=== PATIENT | female | born 1970 | race Caucasian/White ===

== ENCOUNTER 2022-12-28 17:13 | Emergency (ER) | payer OTHER, SELFPAY ==
--- NOTE | 2022-12-28 17:33 | ED.BACK ---
HPI - Back Pain/Injury General Chief Complaint: Abdominal Pain Stated Complaint: Flank pain Time Seen by Provider: 12/28/22 19:25 Source: patient and family Mode of arrival: ambulatory History of Present Illness HPI Narrative: 52-year-old female who arrives with persistent right upper flank discomfort, has been evaluated at [facility] (I reviewed the workup that she had at that time 12/22), she states that she did start the pantoprazole which she is taking twice a day and was prescribed some Carafate but has not yet started that. She states that an ultrasound was negative for gallbladder disease though it did demonstrate a fatty liver. This pain has not been associated with any fever, chills, nausea, vomiting, patient does express some concern regarding possible Crohn's as her father had this disease. Related Data Allergies Allergy/AdvReac Type Severity Reaction Status Date / Time avocado AdvReac Nausea Verified 12/28/22 17:36 Review of Systems Review of Systems: Pertinent positives and negatives as stated in HPI PMFSH Past Medical History Source: nursing notes reviewed Physical Exam Vital Signs: Vital Signs: Last Vital Signs Temp 97.8 F 12/28/22 17:34 Pulse 69 12/28/22 17:34 Resp 18 12/28/22 17:34 BP 155/77 H 12/28/22 17:34 Pulse Ox 97 12/28/22 17:34 O2 Del Method Room Air 12/28/22 17:34 BMI result Body Mass Index 31.2 VITAL SIGNS: Reviewed. GENERAL: Well developed, well nourished, in no acute distress. HEAD: Normocephalic/atraumatic EYES: PERRLA, EOMI EARS: Ext canals without abnormality NOSE: Nares patent bilateral OROPHARYNX: no oral lesions noted, posterior pharynx clear NECK: Supple, no adenopathy LUNGS: Normal breath sounds. No adventitious sounds or accessory muscle use. SpO2<97> CARDIOVASCULAR: Regular rate and rhythm without noted murmurs ABDOMEN: Soft, non-tender, non-distended with bowel sounds. MUSCULOSKELETAL: No tenderness, deformities, or effusions noted on gross inspection. EXTREMITIES: No cyanosis, clubbing or edema. SKIN: Inspection of the skin reveals no rashes NEUROLOGIC: Alert and oriented x 4. Strength and sensation to light touch were grossly intact x 4. Course Course Course Narrative: This is a rapid medical exam. Deferred additional HPI, ROS, PE to primary provider. 52 yo female with history of fatty liver here with right sided flank pain, bloating of the abdomen intermittent for 3 weeks. Decreased oral intake, noted some blood in the stools. No urinary sympoms. Waiting for outpatient CT A/P. Will check labs, UA. VSS Medical Decision Making Medical Decision Making MDM Narrative: Is a 52-year-old female with history and clinical presentation of a very through oral workup at [facility] and by her primary care provider which did not demonstrate any leukocytosis, anemia, elevated inflammatory markers, I reviewed the ultrasound evaluation and all chemistries appeared within normal limits. There are plans for patient to get an outpatient CT scan and at this time I do not feel that there is need to proceed with a CT scan today, patient is hemodynamically stable and appears otherwise comfortable, she will receive a GI cocktail as well as Carafate. We did discuss the benefits of Carafate and the importance of starting that treatment. No also recommended that she may want to pursue an upper endoscopy for evaluation of the stomach lining. She is otherwise discharged home in stable condition with interpretation of gastritis and possible gastric erosions. Differential Diagnosis Please see the discussion above Lab Data Please see the discussion above 12/28/22 17:52 12/28/22 17:52 Labs: Lab Results 12/28/22 12/28/22 Range/Units 17:52 17:52 WBC 9.2 (4.8-10.8) X10*3/uL RBC 4.38 (4.20-5.50) X10*6/uL Hgb 13.5 (12.0-16.0) g/dl Hct 40.5 (37.0-47.0) % MCV 92.5 (80.0-98.0) fL MCH 30.8 (27.0-33.0) pg MCHC 33.3 (31.0-35.0) g/dl RDW 11.9 (11.0-16.0) % Plt Count 332 (160-400) X10*3/uL MPV 10.6 (9.4-12.3) fL Immature Gran % (Auto) 0.4 (0.0-0.4) % Neut % (Auto) 56.9 (45-73) % Lymph % (Auto) 29.9 (20-40) % [place] % (Auto) 8.6 (2-11) % Eos % (Auto) 3.4 (0-4) % Baso % (Auto) 0.8 (0-2) % Lymph # (Auto) 2.8 (1.2-4.9) X10*3/uL [place] # (Auto) 0.8 (0.1-1.2) X10*3/uL Eos # (Auto) 0.3 (0.0-0.4) X10*3/uL Baso # (Auto) 0.1 (0.0-0.2) X10*3/uL Abs Immat Gran (auto) 0.04 H (0.00-0.03) X10*3/uL Absolute Neuts (auto) 5.2 (2.0-8.3) x10*3/uL Absolute Nucleated RBC 0.000 (0.0-0.012) X10*3/uL Nucleated RBC % (auto) 0.0 (0.0-0.2) /100WBC Sodium 143 (135-145) mmol/L Potassium 3.8 (3.3-5.1) mmol/L Chloride 107 (96-108) mmol/L Carbon Dioxide 24 (22-29) mmol/L Anion Gap 16 (12-20) BUN 13 (9-16) mg/dL Creatinine 0.87 (0.5-1.4) mg/dL Estim Creat Clear Calc 87.2 Estimated GFR > 60 Random Glucose 100 (60-115) mg/dL Calcium 9.6 (8.4-10.2) mg/dL Total Bilirubin 0.4 (0.0-1.0) mg/dL Direct Bilirubin 0.1 (0.0-0.5) mg/dL AST 23 (5-31) U/L ALT 30 (0-31) U/L Alkaline Phosphatase 89 (39-117) U/L Total Protein 7.2 (6.5-8.0) g/dL Albumin 4.5 (3.5-5.0) g/dL Lipase 24 (8-78) U/L External Record Review External record reviewed: Outpatient record and Outside ED record Discharge Plan Discharge Clinical Impression: Gastritis, Gastric erosion Patient Disposition: Home, Self-Care Instructions: Diet for Stomach Ulcers and Gastritis (ED), Gastritis (ED) Additional Instructions: 1. Resume all home medications as prescribed. 2. I certainly recommend that you initiate Carafate 3. It may be worthwhile for you to have an H pylori test and pursue an upper endoscopy. Return to the ER for any worsening symptoms. Referrals: Stephon Simon MD [Primary Care Provider] -
[2022-12-28 17:34] VITALS: BP 155/77; PULSE 69; RESP 18; TEMP 36.6; O2SAT 97; BMI 31.2
[2022-12-28 17:58] LABS: MANUAL DIFF FLAG NO
[2022-12-28 18:24] LABS: Basophils Absolute Auto 0.1 X10*3/uL (0.0-0.2); Basophils Percent Auto 0.8 % (0-2); Eosinophils Absolute Auto 0.3 X10*3/uL (0.0-0.4); Eosinophils Percent Auto 3.4 % (0-4); Hematocrit 40.5 % (37.0-47.0); Hemoglobin 13.5 g/dl (12.0-16.0); Imm Gran Abs Auto 0.04 X10*3/uL (0.00-0.03); Imm Gran Pct Auto 0.4 % (0.0-0.4); Lymphocytes Absolute Auto 2.8 X10*3/uL (1.2-4.9); Lymphocytes Percent Auto 29.9 % (20-40); Mean Corpuscular HGB Conc 33.3 g/dl (31.0-35.0); Mean Corpuscular Hemoglobin 30.8 pg (27.0-33.0); Mean Corpuscular Volume 92.5 fL (80.0-98.0); Mean Platelet Volume 10.6 fL (9.4-12.3); Monocytes Absolute Auto 0.8 X10*3/uL (0.1-1.2); Monocytes Percent Auto 8.6 % (2-11); Neutrophils Absolute Auto 5.2 x10*3/uL (2.0-8.3); Neutrophils Percent Auto 56.9 % (45-73); Platelet Count 332 X10*3/uL (160-400); Red Blood Count 4.38 X10*6/uL (4.20-5.50); Red Cell Distribution Width 11.9 % (11.0-16.0); White Blood Count 9.2 X10*3/uL (4.8-10.8)
[2022-12-28 18:25] LABS: Alanine Aminotransferase 30 U/L (0-31); Albumin Level 4.5 g/dL (3.5-5.0); Alkaline Phosphatase 89 U/L (39-117); Anion Gap 16 (12-20); Aspartate Amino Transferase 23 U/L (5-31); Bilirubin Direct 0.1 mg/dL (0.0-0.5); Bilirubin Total 0.4 mg/dL (0.0-1.0); Blood Urea Nitrogen 13 mg/dL (9-16); Calcium 9.6 mg/dL (8.4-10.2); Carbon Dioxide 24 mmol/L (22-29); Chloride 107 mmol/L (96-108); Creatinine Clr Calc Pharmacy 87.2; Estimated Glomerular Filt Rate > 60; Glucose Random 100 mg/dL (60-115); Lipase 24 U/L (8-78); Potassium 3.8 mmol/L (3.3-5.1); Sodium 143 mmol/L (135-145); Total Protein 7.2 g/dL (6.5-8.0)
--- NOTE | 2022-12-28 19:48 | PC.NURSE ---
assumed care of pt recvd report from JASPREET Gillis aox4 at bedside no apparent distress
[2022-12-28] MEDS: Lidocaine HCl Viscous 2 % 15 ML SOLUTION 10 ML MUCOUS MEM (20:43)
[2022-12-28] MEDS: Sucralfate Oral Suspension 1 GM/10 ML ORAL.SUSP PO (20:43)
[2022-12-28] MEDS: Magnesium Hydrox/Alum Hydrox 30 ML ORAL.SUSP PO (20:43)
[2022-12-28 20:48] VITALS: BP 142/83; PULSE 56; RESP 16; O2SAT 96
== END 2022-12-28 20:51 | disposition home or self-care (01) ==
PROVIDERS: Nurse Practitioner Family; Emergency Provider Student in an Organized Health Care Education/Training Program; PCP Internal Medicine
DX: K25.9 Gastric ulcer, unspecified as acute or chronic, without hemorrhage or perforation (principal); Z79.899 Other long term (current) drug therapy
CPT/HCPCS: 36415; 80048; 80076; 83690; 85025; 99283; 99284

== ENCOUNTER 2023-02-27 09:02 | Outpatient (REF) | payer OTHER, SELFPAY ==
[2023-02-27 12:00] LABS: C Reactive Protein 0.48 mg/dL (< or = 0.50)
[2023-02-27 12:13] LABS: Ferritin 163 ng/mL (10-250)
[2023-02-27 12:14] LABS: HBS Num1 120.16 mIU/mL (0-7.99); HBc Num1 0.07 S/CO (0.00-0.79); HBsAGNum1 0.31 S/CO (0.00-0.99); HIV AB/AG Nonreactive (Nonreactive); HIV Num 1 0.06 S/CO (0.00-0.99); Hepatitis A Antibody IgM 0.23 Index (0-0.79); Hepatitis B Core Antibody Nonreactive (Nonreactive); Hepatitis B Surface Antigen Negative (Negative); ~HepC Num1 0.06 S/CO (0.00-0.79); ~Hepatitis A Antibody IgM Nonreactive (Nonreactive); ~Hepatitis B Surface Antibody REACTIVE (Nonreactive); ~Hepatitis C Antibody Nonreactive (Nonreactive)
[2023-02-27 12:26] LABS: Gamma Glutamyl Transpeptidase 41 U/L (7-33)
[2023-02-28 11:23] LABS: Alpha Fetoprotein 1.3 ng/mL
[2023-02-28 17:03] LABS: Ceruloplasmin 28 mg/dL (18-53)
[2023-02-28 18:53] LABS: Transglutaminase Ab IgG <1.0 U/mL; Transglutaminase IgA <1.0 U/mL
[2023-03-01 10:58] LABS: Mitochondrial Antibodies NEGATIVE (NEGATIVE)
[2023-03-04 14:23] LABS: Anti Nuclear Antibody Screen NEGATIVE (NEGATIVE)
[2023-03-05 11:16] LABS: Anti Nuclear Antibody Pattern TNPT
[2023-03-05 22:48] LABS: Smooth Muscle Antibody <20 U (<20)
== END 2023-02-27 09:03 | disposition home or self-care (01) ==
LOC: HO.LAB 09:02
PROVIDERS: PCP Internal Medicine; Visit Provider Nurse Practitioner
DX: R74.01 Elevation of levels of liver transaminase levels (principal); R10.9 Unspecified abdominal pain; R19.7 Diarrhea, unspecified; K62.5 Hemorrhage of anus and rectum
CPT/HCPCS: 36415; 81479; 82105; 82390; 82397; 82728; 82977; 83520; 86003; 86015; 86038; 86140; 86255; 86256; 86364; 86704; 86706; 86709; 86803; 87340; 87389; 88346; 88350

== ENCOUNTER 2023-02-27 09:02 | Outpatient (AMB) | payer OTHER, SELFPAY ==
--- NOTE | 2023-02-27 09:03 | MHC.OFFVIS ---
Intake Vital Signs 02/27/23 09:06 Height 5 ft 7 in Weight 199 lb 4.766 oz BMI 31.2 BP 120/55 L Blood Pressure Location Rt brachial Position Sitting Pulse 70 Intake Visit Reasons: abdominal discomfort Intake Note: Patient presents to in office visit today as a new patient CC: Patient states she started to have abdominal pain, bloating, and abdominal discomfort back in November. She was seen in the [place] [facility]. She states she is now starting to feel better. She was told she has a hiatal hernia and fatty liver. She is now feeling like my stomach is heavy , and having occasional bloody diarrhea. [place] Superintendent Required: No Accompanied by: Self / Same As Patient Allergies No Known Drug Allergies Allergy (Unknown, Verified 02/27/23 09:09) none avocado Adverse Reaction (Verified 02/27/23 09:09) Nausea HPI abdominal discomfort HPI Details 52-year-old female here for initial evaluation of ?abdominal discomfort. ? It appears that they also expect the patient to have an upper and lower endoscopy. She is referred [facility]. PMX Obesity Fracture 4th toe GERD SMOKER * SURGICAL HISTORY Tonsillectomy * ALLERGIES: NKDA * LABS SINCE STUDY SUPPLIED BY PCP: 01/20/2023 unremarkable CBC with normal platelets, unremarkable renal panel, normal lipase level, AST/ALT with normal bilirubin and normal alk-phos, unremarkable renal panel,. Normal CRP, normal TSH, trace of hemoglobin in the urine CT ABDOMEN AND PELVIS 01/08/2023 [facility] IMPRESSION . Colonic diverticulosis without evidence for diverticulitis Small fat containing umbilical hernia Diffuse hepatic steatosis, nondistended gallbladder no stones no evidence of inflammation no biliary duct dilation.. TODAYS VISIT ADDITIONAL INFORMATION comes to light that the patient was seen in both our ER in the [facility] ER for pain and bloody diarrhea. Apparently her father has a history of Crohn's disease and also from [place] but contracted Hep B from a liver transplant. She started with LLQ pain last February and presented to the ER ([facility]) and waited too long and left. She was told her blood levels were off but in the end they were normal. In November she developed pain in the right flank and she was told it was heartburn and she was put on protonix and sucralfate. She had a lot of bloating and her lower abdomen feels heavy. She has lingering LLQ discomfort. She has a long prior history of intermittent diarrhea, but lately when she has diarrhea it will bleed. At first it is water mixed with solids and then just water with blood. She will have softer BM's mushy daily. She had chills but no measured fevers, no new meds no sick contacts, no undercooked foods, no urinary sx. She lost about 15 lbs since November - but she has cut out a lot of foods, fatty/fried, spicy etc. Drinking a lot of water instead of diet coke. Her thyroid in January was normal. The PPI and sucralfate seemed to help her. She has never had a colonoscopy. We will get a colonoscopy in EGD ordered and decide going forward if we need to keep the EGD. I will also get some labs based on her family history of Crohn's, although the lack of any sustained inflammation on CT scans seems to point away from this as a diagnosis. Will try treating the rectal bleeding with the hemorrhoid cream in the meantime since this is very worrisome to her. She would like us to do workup on her liver since her father seem to dive WELDON. Obviously I do not have problem doing this. It is slightly unusual for someone to develop cirrhosis from WELDON in the absence of drinking alcohol (he did not drink) so course we want to exclude autoimmune liver disease. The she has no prior trouble with anesthesia or sedation. She denies any asthma or cardiac problems. She has no known infectious diseases. There is no known family history of colon cancer or polyps. . Return office visit in 2 WEEKS. [facility] Surgical History (Updated 02/22/23 @ 16:07 by MARTINE Baker) Hx of tonsillectomy Family History (Updated 02/27/23 @ 09:12 by CORRIE Marte) Father WELDON (nonalcoholic steatohepatitis) Liver transplanted Crohn disease Social History (Updated 02/27/23 @ 09:11 by CORRIE Marte) Alcohol intake: current Alcohol intake frequency: holidays/special occasions only Patient Tobacco Use Status: Current someday Tobacco user Use of substances other than those prescribed or required for medical reasons: No Review of Systems Const Denies fatigue, Denies fever(s), Denies night sweats, Denies poor appetite and Reports weight loss ENT Reports Normal hearing present, Denies dental pain, Denies dysphagia, Denies hearing loss, Denies mouth pain, Denies odynophagia, Denies throat swelling, Denies tongue swelling and Reports other (Dentition adequate) Card Reports no additional complaints Resp Reports no additional complaints GI Reports abdominal pain, Denies melena, Reports bloating, Reports hematochezia, Denies constipation, Denies GI cramping, Denies dysphagia, Denies excessive flatus, Denies early satiety, Reports heartburn, Reports diarrhea, Denies nausea, Denies odynophagia, Denies vomiting and Denies hematemesis Musc Reports back pain Skin/Breast Denies pruritus, Denies lesions, Denies rash and Denies jaundice Neuro Reports Normal hearing present and Denies Abnormal speech present Endo Denies fatigue Aller/Immun Denies throat swelling and Denies tongue swelling Physical Exam Vital Signs: Last Vital Signs Pulse 70 02/27/23 09:06 BP 120/55 L 02/27/23 09:06 BMI result Body Mass Index 31.2 Const General: cooperative, no acute distress, well developed and well groomed Nutritional Appearance: well nourished and overweight Orientation/consciousness: oriented to person, oriented to place and oriented to time Limitations: No language barrier HEENT Head: Yes normocephalic and Yes atraumatic Eyes General: appearance normal, both eyes and all related structures Pupils: Equal, round and reactive pupils present Neck Neck: Yes normal visual inspection and Yes no lymphadenopathy Thyroid: Thyroid normal Resp Effort & Inspection: normal respiratory effort and able to speak in complete sentences Auscultation: clear to auscultation bilaterally Cardio Rate: regular rate Rhythm: regular rhythm Heart sounds: Normal, physiologic split S2 sound present Peripheral pulses: radial pulses present and posterior tibial pulses present GI Inspection: No distended, No Abdominal panniculus present, Yes obesity, No scar and Yes striae Palpation (GI): Soft to palpation, nontender, no guarding, not rigid and No hepatosplenomegaly present Percussion: Yes normal to percussion Auscultation: normal bowel sounds Rectal Exam - Female: deferred Skin General skin exam: no rashes or lesions noted, turgor normal, skin not dry, no jaundice, No spider nevi and no striae Rashes: no rashes Nails: normal Neuro General: oriented to person, oriented to place and oriented to time Cranial nerves: Yes Equal, round and reactive pupils present and Yes Normal hearing present Speech: No Abnormal speech present Extrem General: Yes normal to inspection, No clubbing, No cyanosis and No edema Psych Appearance: grossly normal and well kempt Mental Status: mental status grossly normal Speech and movement: Normal speech and movement present Affect: normal affect Attitude: cooperative Thought process: Normal thought process present and not confabulating Thought content: Normal thought content present Insight: Good insight present (Psych) Judgement: Good judgement present (Psych) Assessment & Plan Assessment & Plan (1) Diarrhea: Code(s): R19.7 - Diarrhea, unspecified Plan: ADDITIONAL INFORMATION comes to light that the patient was seen in both our ER in the [facility] ER for pain and bloody diarrhea. Apparently her father has a history of Crohn's disease and also from [place] but contracted Hep B from a liver transplant. She started with LLQ pain last February and presented to the ER ([facility]) and waited too long and left. She was told her blood levels were off but in the end they were normal. In November she developed pain in the right flank and she was told it was heartburn and she was put on protonix and sucralfate. She had a lot of bloating and her lower abdomen feels heavy. She has lingering LLQ discomfort. She has a hx of intermittent diarrhea, but lately when she has diarrhea it will bleed. At first it is water mixed with solids and then just water with blood. She will have softer BM's mushy daily. She had chills but no measured fevers, no new meds no sick contacts, no undercooked foods, no urinary sx. She lost about 15 lbs since November - but she has cut out a lot of foods, fatty/fried, spicy etc. Drinking a lot of water instead of diet coke. Her thyroid in January was normal. The PPI and sucralfate seemed to help her. She has never had a colonoscopy. We will get a colonoscopy in EGD ordered and decide going forward if we need to keep the EGD. I will also get some labs based on her family history of Crohn's, although the lack of any sustained inflammation on CT scans seems to point away from this as a diagnosis. Will try treating the rectal bleeding with the hemorrhoid cream in the meantime since this is very worrisome to her. She would like us to do workup on her liver since her father seem to dive WELDON. Obviously I do not have problem doing this. It is slightly unusual for someone to develop cirrhosis from WELDON in the absence of drinking alcohol (he did not drink) so course we want to exclude autoimmune liver disease. The she has no prior trouble with anesthesia or sedation. She denies any asthma or cardiac problems. She has no known infectious diseases. There is no known family history of colon cancer or polyps. Return office visit in 2 WEEKS. (2) Rectal bleeding: Code(s): K62.5 - Hemorrhage of anus and rectum (3) Transaminitis: Code(s): R74.01 - Elevation of levels of liver transaminase levels (4) Abdominal pain: Code(s): R10.9 - Unspecified abdominal pain Orders: Orders Calprotectin, Fecal Today R74.01 - Elevation of levels of liver transaminase levels C Reactive Protein Today R74.01 - Elevation of levels of liver transaminase levels Prometheus IBD SGI Today R74.01 - Elevation of levels of liver transaminase levels Rast Allergen Today R74.01 - Elevation of levels of liver transaminase levels Transglutaminase IgA Today R74.01 - Elevation of levels of liver transaminase levels Transglutaminase Ab IgG Today R74.01 - Elevation of levels of liver transaminase levels GI Panel Today R74.01 - Elevation of levels of liver transaminase levels Alpha Fetoprotein Today R74.01 - Elevation of levels of liver transaminase levels Ceruloplasmin Today R74.01 - Elevation of levels of liver transaminase levels Ferritin Today R74.01 - Elevation of levels of liver transaminase levels Gamma Glutamyl Transpeptidase Today R74.01 - Elevation of levels of liver transaminase levels GUILHERME Reflex Titer and Pattern Today R74.01 - Elevation of levels of liver transaminase levels Mitochondrial Antibody Today R74.01 - Elevation of levels of liver transaminase levels Smooth Muscle Antibody Today R74.01 - Elevation of levels of liver transaminase levels Hepatitis A,B,C Profile Today R74.01 - Elevation of levels of liver transaminase levels HIV Ab/Ag Today R74.01 - Elevation of levels of liver transaminase levels EGD/Oakley Combo - GI Use Only Today R10.9 - Unspecified abdominal pain Medications: New peg 3350-electrolytes 236-22.74-6.74 -5.86 gram (Golytely) until fecal effluent is clear; do not exceed a total volume of 2,000 mL 240 mL PO Q10M 1 day 4,000 mL 0RF Z12.11 - Encounter for screening for malignant neoplasm of colon hydrocortisone 2.5% (Proctosol HC) BE SURE TO INCLUDE RECTAL APPICATOR!! 1 appl IA BID 30 grams 6RF hemorrhoids K64.9 - Unspecified hemorrhoids Coding Level of Care Code New Pt Level 3 (08481) Diagnoses Diarrhea R19.7 Rectal bleeding K62.5 Transaminitis R74.01 Abdominal pain R10.9
[2023-02-27 09:06] VITALS: BP 120/55; PULSE 70; BMI 31.2
== END 2023-02-27 09:59 | disposition home or self-care (01) ==
PROVIDERS: PCP Internal Medicine; Visit Provider Nurse Practitioner
DX: R19.7 Diarrhea, unspecified (principal); K62.5 Hemorrhage of anus and rectum; R74.01 Elevation of levels of liver transaminase levels; R10.9 Unspecified abdominal pain
CPT/HCPCS: 99203

== ENCOUNTER 2023-03-07 17:59 | Outpatient (REF) | payer OTHER, SELFPAY ==
[2023-03-08 11:55] LABS: Campylobacter Not Detected (Not Detect.); E. coli EAEC Not Detected (Not Detect.); Plesiomonas shigelloides Not Detected (Not Detect.); Salmonella Not Detected (Not Detect.); Vibrio Not Detected (Not Detect.); Vibrio Cholerae Not Detected (Not Detect.); Yersinia enterocolitica Not Detected (Not Detect.)
[2023-03-08 11:56] LABS: Adenovirus F 40/41 Not Detected (Not Detect.); Astrovirus Not Detected (Not Detect.); Cryptosporidium Not Detected (Not Detect.); Cyclospora cayetanensis Not Detected (Not Detect.); E. coli EPEC Detected (Not Detect.); E. coli ETEC Not Detected (Not Detect.); E. coli STEC Not Detected (Not Detect.); Entamoeba histolytica Not Detected (Not Detect.); Giardia lamblia Not Detected (Not Detect.); Norovirus GI/GII Not Detected (Not Detect.); Rotavirus A Not Detected (Not Detect.); Sapovirus Not Detected (Not Detect.); Shigella sp./EIEC Not Detected (Not Detect.)
[2023-03-14 23:47] LABS: Calprotectin, Fecal 77 mcg/g
== END 2023-03-07 18:00 | disposition home or self-care (01) ==
LOC: HO.LNP 17:59
PROVIDERS: Visit Provider Nurse Practitioner
DX: R74.01 Elevation of levels of liver transaminase levels (principal)
CPT/HCPCS: 83993; 87507

== ENCOUNTER 2023-03-12 13:20 | Outpatient (AMB) | payer OTHER, SELFPAY ==
[2023-03-12 13:22] VITALS: BP 119/59; PULSE 80; BMI 31.5
--- NOTE | 2023-03-12 13:22 | A.OFFVIS_ITS ---
Intake Vital Signs 03/12/23 13:22 Height 5 ft 7 in Weight 201 lb 0.985 oz BMI 31.5 BP 119/59 L Blood Pressure Location Rt brachial Position Sitting Pulse 80 Intake Visit Reasons: 2 week follow up Intake Note: Patient presents to in office visit today in follow up of labs. CC: Patient states she continues to have abdominal pain, bloating, and abdominal discomfort. Product Coordinator Required: No Accompanied by: Self / Same As Patient Allergies No Known Drug Allergies Allergy (Unknown, Verified 04/09/23 14:33) none avocado Adverse Reaction (Verified 04/09/23 14:33) Nausea HPI 2 week follow up HPI Details Assessment & Plan (1) Diarrhea: ?Code(s): R19.7 - Diarrhea, unspecified ?Plan: ADDITIONAL INFORMATION comes to light that the patient was seen in both our ER in the [facility] for pain and bloody diarrhea.? Apparently her father has a history of Crohn's disease and also from WELDON but contracted Hep B from a liver transplant. She started with LLQ pain last February and [place] and waited too long and left. She was told her blood levels were off but in the end they were normal. In November she developed pain in the right flank and she was told it was heartburn and she was put on protonix and sucralfate. She had a lot of bloating and her lower abdomen feels heavy. She has lingering LLQ discomfort. She has? a hx of intermittent diarrhea, but lately when she has diarrhea it will bleed. At first it is water mixed with solids and then just water with blood. She will have softer BM's mushy daily. She had chills but no measured fevers, no new meds no sick contacts, no undercooked foods, no urinary sx. She lost about 15 lbs since November - but she has cut out a lot of foods, fatty/fried, spicy etc. Drinking a lot of water instead of diet coke.? Her thyroid in January was normal. The PPI and sucralfate seemed to help her. She has never had a colonoscopy.? We will get a colonoscopy in EGD ordered and decide going forward if we need to keep the EGD. I will also get some labs based on her family history of Crohn's, although the lack of any sustained inflammation on CT scans seems to point away from this as a diagnosis.? Will try treating the rectal bleeding with the hemorrhoid cream in the meantime since this is very worrisome to her. She would like us to do workup on her liver since her father seem to dive WELDON.? Obviously I do not have problem doing this.? It is slightly unusual for someone to develop cirrhosis from WELDON in the absence of drinking alcohol (he did not drink) so course we want to exclude autoimmune liver disease. The she has no prior trouble with anesthesia or sedation.? She denies any asthma or cardiac problems.? She has no known infectious diseases. There is no known family history of colon cancer or polyps. Return office visit in 2 WEEKS. (2) Rectal bleeding: ?Code(s): K62.5 - Hemorrhage of anus and rectum (3) Transaminitis: ?Code(s): R74.01 - Elevation of levels of liver transaminase levels (4) Abdominal pain: ?Code(s): R10.9 - Unspecified abdominal pain ? ? ? Orders: Orders Calprotectin, Feca l Today R74.01 - Elevation of levels of live r transaminase lev els ? C Reactive Protein Today R74.01 - Elevation of levels of live r transaminase lev els ? Prometheus IBD SGI Today R74.01 - Elevation of levels of live r transaminase lev els ? Rast Allergen Today R74.01 - Elevation of levels of live r transaminase lev els ? Transglutaminase I gA Today R74.01 - Elevation of levels of live r transaminase lev els ? Transglutaminase A b IgG Today R74.01 - Elevation of levels of live r transaminase lev els ? GI Panel Today R74.01 - Elevation of levels of live r transaminase lev els ? Alpha FetoproteinA Today R74.01 - Elevation of levels of live r transaminase lev els ? Ceruloplasmin Today R74.01 - Elevation of levels of live r transaminase lev els ? Ferritin Today R74.01 - Elevation of levels of live r transaminase lev els ? Gamma Glutamyl Tra nspeptidase Today R74.01 - Elevation of levels of live r transaminase lev els ? GUILHERME Reflex Titer a nd Pattern Today R74.01 - Elevation of levels of live r transaminase lev els ? Mitochondrial Anti body Today R74.01 - Elevation of levels of live r transaminase lev els ? Smooth Muscle Anti body Today R74.01 - Elevation of levels of live r transaminase lev els ? Hepatitis A,B,C Pr ofile Today R74.01 - Elevation of levels of live r transaminase lev els ? HIV Ab/Ag Today R74.01 - Elevation of levels of live r transaminase lev els ? EGD/[place] Combo - G I Use Only Today R10.9 - Unspecifie d abdominal pain ? Medications: New peg 3350-electroly jc 236-22.74-6.74 -5.86 gram (Golyt garth) ?? until feca l effluent is natanael r; do not exceed a total volume of 2 ,000 mL 240 mL? PO Q10M 1 day 4,000 mL 0RF Z12.11 - Encounter for screening for malignant neoplas m of colon ? hydrocortisone 2.5 % (Proctosol HC) ? ? BE SURE TO INCLU DE RECTAL APPICATO R!! 1 appl? PA BID 30 grams 6RF hemorrho ids K64.9 - Unspecifie d hemorrhoids LABS Laboratory Tests 02/27/23 02/27/23 10:36 10:36 C-Reactive Protein 0.48 Ceruloplasmin 28 Alpha Fetoprotein 1.3 Laboratory Tests 02/27/23 02/27/23 02/27/23 10:36 10:36 10:36 Ferritin 163 Alpha Fetoprotein 1.3 GUILHERME Screen NEGATIVE Anti-Mitochondrial Ab Anti-Smooth Muscle Ab Tiss Transglutamin IgG Tiss Transglutamin IgA Hepatitis A IgM Ab Hep Bs Antigen Hep Bs Antibody Hep B Core Total A b Hepatitis C Ab (EI A) HIV 1&2 Ab/P24 Ag 4thGn 02/27/23 02/27/23 10:36 10:36 Ferritin Alpha Fetoprotein GUILHERME Screen Anti-Mitochondrial Ab NEGATIVE Anti-Smooth Muscle Ab <20 Tiss Transglutamin IgG <1.0 Tiss Transglutamin IgA <1.0 Hepatitis A IgM Ab Nonreactive Hep Bs Antigen Negative Hep Bs Antibody REACTIVE Hep B Core Total A b Nonreactive Hepatitis C Ab (EI A) Nonreactive HIV 1&2 Ab/P24 Ag 4thGn Nonreactive 03/07/23-1800 OTHR : ORDERED: GI Panel Test Result Flag Referen ce Sit e Campylobacter Not Detected Not Dete ct. P. shigelloides Not D etected Not Detect . Sa lmonella Not Det ected Not Detect. Vibr io Not Detec ame Not Detect. Vibrio Cholerae Not Detecte d Not Detect. Y. enter ocolit. Not Detected Not Detect. E. coli EA EC Not Detected No t Detect. E. coli EPEC Detected A Not Detect. E. coli ETEC N ot Detected Not De tect. E. coli STEC Not Detected Not Dete ct. E. coli O157 Not ap plicable Not Detect . E. coli contain ing the O157 antig en are a subset of Shiga-like toxin-producing E . coli (STEC). S higella/EIEC Not De tected Not Detect. Cry ptosporidium Not Dete cted Not Detect. Cyclo spora Not Detect ed Not Detect. E. hist olytica Not Detected Not Detect. Giardia l amblia Not Detected N ot Detect. Adenovirus Not Detected Not Detect. Astrovirus Not Detected Not D etect. Norovirus No t Detected Not Det ect. Rotavirus A Not Detected Not Detec t. S apovirus Not De tected Not Detect. PROMETHEUS INCONCLUSIVE FOR IBS. RAST PANEL shows NO significant food allergies. EGD/COLONOSCOPY BIOPSY TODAYS VISIT Her diarrhea continues, she is taking the sucralfate and this usually helped a bit with the heaviness but not the diarrhea. Her stomach hurts when she bends down. WE review the labs, still waiting for the fecal calprotectin. The Prometheus study is inconclusive for IBD and the RAST panel does not show any significant food allergies. She has not yet heard to have EGD/colonoscopy scheduled. Will try zithromax 1 g for the + EPAP E coli, but I am uncertain how much this is a contributing factor to her overall symptoms. ROV 4 weeks. PFSH Surgical History Hx of tonsillectomy Family History Father WELDON (nonalcoholic steatohepatitis) Liver transplanted Crohn disease Social History Alcohol intake: current Alcohol intake frequency: holidays/special occasions only Patient Tobacco Use Status: Current someday Tobacco user Review of Systems Const Denies fatigue, Denies fever(s), Denies night sweats, Denies poor appetite and Denies weight loss ENT Reports Normal hearing present, Denies dental pain, Denies dysphagia, Denies hearing loss, Denies mouth pain, Denies odynophagia, Denies throat swelling, Denies tongue swelling and Reports other (Dentition adequate) Card Reports no additional complaints Resp Reports no additional complaints GI Reports abdominal pain, Denies melena, Denies bloating, Denies hematochezia, Denies constipation, Denies GI cramping, Denies dysphagia, Denies excessive flatus, Denies early satiety, Reports heartburn, Reports diarrhea, Denies nausea, Denies odynophagia, Denies vomiting and Denies hematemesis Skin/Breast Denies pruritus, Denies lesions, Denies rash and Denies jaundice Neuro Reports Normal hearing present and Denies Abnormal speech present Endo Denies fatigue Aller/Immun Denies throat swelling and Denies tongue swelling Physical Exam Vital Signs: Last Vital Signs Pulse 80 03/12/23 13:22 BP 119/59 L 03/12/23 13:22 BMI result Body Mass Index 31.5 Const General: cooperative, no acute distress, well developed and well groomed Nutritional Appearance: well nourished and obese Orientation/consciousness: oriented to person, oriented to place and oriented to time Limitations: No language barrier HEENT Head: Yes normocephalic and Yes atraumatic Eyes General: appearance normal, both eyes and all related structures Pupils: Equal, round and reactive pupils present Neck Neck: Yes normal visual inspection and Yes no lymphadenopathy Thyroid: Thyroid normal Resp Effort & Inspection: normal respiratory effort and able to speak in complete sentences Auscultation: clear to auscultation bilaterally Cardio Rate: regular rate Rhythm: regular rhythm Heart sounds: Normal, physiologic split S2 sound present Peripheral pulses: radial pulses present and posterior tibial pulses present GI Inspection: No distended, No Abdominal panniculus present and Yes obesity Palpation (GI): Soft to palpation, Tenderness to palpation present (GI) in the RUQ, no guarding, not rigid and No hepatosplenomegaly present Percussion: Yes normal to percussion Auscultation: normal bowel sounds Rectal Exam - Female: deferred Skin General skin exam: no rashes or lesions noted, turgor normal, skin not dry, no jaundice, No spider nevi and no striae Rashes: no rashes Nails: normal Neuro General: oriented to person, oriented to place and oriented to time Cranial nerves: Yes Equal, round and reactive pupils present and Yes Normal hearing present Speech: No Abnormal speech present Extrem General: Yes normal to inspection, No clubbing, No cyanosis and No edema Psych Appearance: grossly normal and well kempt Mental Status: mental status grossly normal Speech and movement: Normal speech and movement present Affect: normal affect Attitude: cooperative Thought process: Normal thought process present and not confabulating Thought content: Normal thought content present Insight: Limited insight present (Psych) Judgement: Limited judgement present (Psych) Results Reviewed Results Reviewed: Laboratory Tests 02/27/23 02/27/23 10:36 10:36 C-Reactive Protein 0.48 Ceruloplasmin 28 Alpha Fetoprotein 1.3 Laboratory Tests 02/27/23 02/27/23 02/27/23 10:36 10:36 10:36 Ferritin 163 Alpha Fetoprotein 1.3 GUILHERME Screen NEGATIVE Anti-Mitochondrial Ab Anti-Smooth Muscle Ab Tiss Transglutamin IgG Tiss Transglutamin IgA Hepatitis A IgM Ab Hep Bs Antigen Hep Bs Antibody Hep B Core Total Ab Hepatitis C Ab (EIA) HIV 1&2 Ab/P24 Ag 4thGn 02/27/23 02/27/23 10:36 10:36 Ferritin Alpha Fetoprotein GUILHERME Screen Anti-Mitochondrial Ab NEGATIVE Anti-Smooth Muscle Ab <20 Tiss Transglutamin IgG <1.0 Tiss Transglutamin IgA <1.0 Hepatitis A IgM Ab Nonreactive Hep Bs Antigen Negative Hep Bs Antibody REACTIVE Hep B Core Total Ab Nonreactive Hepatitis C Ab (EIA) Nonreactive HIV 1&2 Ab/P24 Ag 4thGn Nonreactive 03/07/23-[address]: ORDERED: GI Panel Test Result Flag Reference Site Campylobacter Not Detected Not Detect. P. shigelloides Not Detected Not Detect. Salmonella Not Detected Not Detect. Vibrio Not Detected Not Detect. Vibrio Cholerae Not Detected Not Detect. Y. enterocolit. Not Detected Not Detect. E. coli EAEC Not Detected Not Detect. E. coli EPEC Detected A Not Detect. E. coli ETEC Not Detected Not Detect. E. coli STEC Not Detected Not Detect. E. coli O157 Not applicable Not Detect. E. coli containing the O157 antigen are a subset of Shiga-like toxin-producing E. coli (STEC). Shigella/EIEC Not Detected Not Detect. Cryptosporidium Not Detected Not Detect. Cyclospora Not Detected Not Detect. E. histolytica Not Detected Not Detect. Giardia lamblia Not Detected Not Detect. Adenovirus Not Detected Not Detect. Astrovirus Not Detected Not Detect. Norovirus Not Detected Not Detect. Rotavirus A Not Detected Not Detect. Sapovirus Not Detected Not Detect. PROMETHEUS INCONCLUSIVE FOR IBS. RAST PANEL shows NO significant food allergies. Assessment & Plan Assessment & Plan (1) Diarrhea: Code(s): R19.7 - Diarrhea, unspecified Plan: EGD/COLONOSCOPY BIOPSY TODAYS VISIT Her diarrhea continues, she is taking the sucralfate and this usually helped a bit with the heaviness but not the diarrhea. Her stomach hurts when she bends down. She continues on her pantoprazole 40 mg twice a day. WE review the labs, still waiting for the fecal calprotectin. The Prometheus study is inconclusive for IBD and the RAST panel does not show any significant food allergies. The liver workup does not show any severe contributing factors except for fatty liver. She is educated that slow steady weight loss and a voidance of alcohol I the 2 most important things to keep her liver healthy over the life time. She has not yet heard to have EGD/colonoscopy scheduled. Will try zithromax 1 g for the + EPAP E coli, but I am uncertain how much this is a contributing factor to her overall symptoms. ROV 4 weeks. (2) GERD (gastroesophageal reflux disease): Code(s): K21.9 - Gastro-esophageal reflux disease without esophagitis (3) Family history of inflammatory bowel disease: Code(s): Z83.79 - Family history of other diseases of the digestive system (4) E. coli infection: Code(s): A49.8 - Other bacterial infections of unspecified site (5) WELDON (nonalcoholic steatohepatitis): Comment: Baseline labs 02/27/23 the GGT 41 H Ceruloplasmin 28 Alpha Fetoprotein 1.3 the GUILHERME Screen NEGATIVE Anti-Mitochondrial Ab NEGATIVE Anti-Smooth Muscle Ab <20 Tiss Transglutamin IgG <1.0 Tiss Transglutamin IgA <1.0 Hepatitis A IgM Ab Nonreactive Hep Bs Antigen Negative Hep Bs Antibody REACTIVE Hep B Core Total Ab Nonreactive Hepatitis C Ab (EIA) Nonreactive HIV 1&2 Ab/P24 Ag 4thGn Nonreactive Ferritin 163 12/28/22 Total Bilirubin 0.4 Direct Bilirubin 0.1 AST 23 ALT 30 Alkaline Phosphatase 89. CURRENT LABS THE CT ABDOMEN PELVIS PERFORMED AT [facility] 01/08/2023 LIVER: Mild hepatic steatosis diffusely. Gallbladder: Nondistended gallbladder. No calcified stones. No evidence of inflammation. No biliary ductal dilation. The spleen: Normal Code(s): K75.81 - Nonalcoholic steatohepatitis (WELDON) Medications: New azithromycin (Zithromax) 1,000 mg (2 x 500 mg) PO ONCE 2 tabs 0RF Coding Level of Care Code Est Pt Level 4 (66664) Diagnoses Diarrhea R19.7 GERD (gastroesophageal reflux disease) K21.9 Family history of inflammatory bowel disease Z83.79 E. coli infection A49.8 WELDON (nonalcoholic steatohepatitis) K75.81
== END 2023-03-12 13:53 | disposition home or self-care (01) ==
PROVIDERS: PCP Internal Medicine; Visit Provider Nurse Practitioner
DX: R19.7 Diarrhea, unspecified (principal); K21.9 Gastro-esophageal reflux disease without esophagitis; Z83.79 Family history of other diseases of the digestive system; A49.8 Other bacterial infections of unspecified site; K75.81 Nonalcoholic steatohepatitis (NASH)
CPT/HCPCS: 99214

== ENCOUNTER → 2023-03-12 13:20 | Outpatient (BNVA) | payer OTHER, SELFPAY | PROVIDERS: PCP Internal Medicine; Visit Provider Nurse Practitioner ==

== ENCOUNTER 2023-04-09 14:25 | Outpatient (AMB) | payer OTHER, SELFPAY ==
[2023-04-09 14:31] VITALS: BP 133/60; PULSE 74; BMI 31.1
--- NOTE | 2023-04-09 14:31 | A.OFFVIS_ITS ---
Intake Vital Signs 04/09/23 14:31 Height 5 ft 7 in Weight 198 lb 13.711 oz BMI 31.1 BP 133/60 Blood Pressure Location Lt brachial Position Sitting Pulse 74 Intake Visit Reasons: 4 week follow up Intake Note: Patient returns to in office 4 weeks follow up of diarrhea. CC: Patient reports she completed course of abx and states she was doing better for 2 weeks but then she began to have diarrhea again. Denies other GI symptoms. 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 Apparently her father has a history of Crohn's disease and also from WELDON but contracted Hep B from a liver transplant. She started with LLQ pain last February and [place] [place] and waited too long and left. She was told her blood levels were off but in the end they were normal. In November she developed pain in the right flank and she was told it was heartburn and she was put on protonix and sucralfate. She had a lot of bloating and her lower abdomen feels heavy. She has lingering LLQ discomfort. She has? a hx of intermittent diarrhea, but lately when she has diarrhea it will bleed. At first it is water mixed with solids and then just water with blood. She will have softer BM's mushy daily. She had chills but no measured fevers, no new meds no sick contacts, no undercooked foods, no urinary sx. She lost about 15 lbs since November - but she has cut out a lot of foods, fatty/fried, spicy etc. Drinking a lot of water instead of diet coke.? Her thyroid in January was normal. The PPI and sucralfate seemed to help her. She has never had a colonoscopy.? We will get a colonoscopy in EGD ordered and decide going forward if we need to keep the EGD. I will also get some labs based on her family history of Crohn's, although the lack of any sustained inflammation on CT scans seems to point away from this as a diagnosis.? Will try treating the rectal bleeding with the hemorrhoid cream in the meantime since this is very worrisome to her. She would like us to do workup on her liver since her father seem to dive WELDON.? Obviously I do not have problem doing this.? It is slightly unusual for someone to develop cirrhosis from WELDON in the absence of drinking alcohol (he did not drink) so course we want to exclude autoimmune liver disease. The she has no prior trouble with anesthesia or sedation.? She denies any asthma or cardiac problems.? She has no known infectious diseases. There is no known family history of colon cancer or polyps. Return office visit in 2 WEEKS. (2) Rectal bleeding: ?Code(s): K62.5 - Hemorrhage of anus and rectum (3) Transaminitis: ?Code(s): R74.01 - Elevation of levels of liver transaminase levels (4) Abdominal pain: ?Code(s): R10.9 - Unspecified abdominal pain ? ? ? Orders: Orders Calprotectin, Feca l Today R74.01 - Elevation of levels of live r transaminase lev els ? C Reactive Protein Today R74.01 - Elevation of levels of live r transaminase lev els ? Prometheus IBD SGI Today R74.01 - Elevation of levels of live r transaminase lev els ? Rast Allergen Today R74.01 - Elevation of levels of live r transaminase lev els ? Transglutaminase I gA Today R74.01 - Elevation of levels of live r transaminase lev els ? Transglutaminase A b IgG Today R74.01 - Elevation of levels of live r transaminase lev els ? GI Panel Today R74.01 - Elevation of levels of live r transaminase lev els ? Alpha FetoproteinA Today R74.01 - Elevation of levels of live r transaminase lev els ? Ceruloplasmin Today R74.01 - Elevation of levels of live r transaminase lev els ? Ferritin Today R74.01 - Elevation of levels of live r transaminase lev els ? Gamma Glutamyl Tra nspeptidase Today R74.01 - Elevation of levels of live r transaminase lev els ? GUILHERME Reflex Titer a nd Pattern Today R74.01 - Elevation of levels of live r transaminase lev els ? Mitochondrial Anti body Today R74.01 - Elevation of levels of live r transaminase lev els ? Smooth Muscle Anti body Today R74.01 - Elevation of levels of live r transaminase lev els ? Hepatitis A,B,C Pr ofile Today R74.01 - Elevation of levels of live r transaminase lev els ? HIV Ab/Ag Today R74.01 - Elevation of levels of live r transaminase lev els ? EGD/[place] Combo - G I Use Only Today R10.9 - Unspecifie d abdominal pain ? Medications: New peg 3350-electroly jc 236-22.74-6.74 -5.86 gram (Golyt garth) ?? until feca l effluent is natanael r; do not exceed a total volume of 2 ,000 mL 240 mL? PO Q10M 1 day 4,000 mL 0RF Z12.11 - Encounter for screening for malignant neoplas m of colon ? hydrocortisone 2.5 % (Proctosol HC) ? ? BE SURE TO INCLU DE RECTAL APPICATO R!! 1 appl? NM BID 30 grams 6RF hemorrho ids K64.9 - Unspecifie d hemorrhoids LABS Laboratory Tests 02/27/23 02/27/23 03/07/23 10:36 10:36 07:50 GGT 41 H C-Reactive Protein 0.48 Ceruloplasmin 28 Alpha Fetoprotein 1.3 Stool Calprotectin 77 GUILHERME Screen NEGATIVE Anti-Mitochondrial Ab NEGATIVE Anti-Smooth Muscle Ab <20 Tiss Transglutamin IgG <1.0 Tiss Transglutamin IgA <1.0 Hepatitis A IgM Ab Nonreactive Hep Bs Antigen Negative Hep Bs Antibody REACTIVE Hep B Core Total A b Nonreactive Hepatitis C Ab (EI A) Nonreactive HIV 1&2 Ab/P24 Ag 4thGn Nonreactive Laboratory Tests 12/28/22 17:52 Total Bilirubin 0.4 Direct Bilirubin 0.1 AST 23 ALT 30 Alkaline Phosphata se 89 Prometheus IBD shows a genetic propensity toward IBD without being able to discern Crohn's versus ulcerative colitis however with a negative CRP and fecal calprotectin this does not seem the likely source of the problem currently. EGD/COLONOSCOPY scheduled for 05/24 BIOPSY TODAY'S VISIT She had initial improvement with the Zithromax but then her symptoms returned. We will re treat with a longer course for e coli. She IS having more solid stools which she was never able to have before even with the Carafate. She went back on the carafate when the heavy feeling returned and this helped, but she was off of it for a bit. We review the labs for her liver and WELDON is the dx. She was educated about slow steady weight loss and avoidance of any regular intake of alcohol to try to help keep her liver healthy over her lifetime. She is aware that she has a genetic tendency towards inflammatory bowel disease but given the negative CRP and fecal calprotectin that clearly is not what is happening now. That does not mean that this could not manifest later in her life and that something we could keep an open mind about if she develops additional diarrhea that is unexplained by other means. She seems to feel that the problem started after course of dental antibiotics and probiotics. ROV 3 weeks. PFSH Surgical History Hx of tonsillectomy Family History Father WELDON (nonalcoholic steatohepatitis) Liver transplanted Crohn disease Social History Alcohol intake: current Alcohol intake frequency: holidays/special occasions only Patient Tobacco Use Status: Current someday Tobacco user Review of Systems Const Denies fatigue, Denies fever(s), Denies night sweats, Denies poor appetite and Denies weight loss ENT Reports Normal hearing present, Denies dental pain, Denies dysphagia, Denies hearing loss, Denies mouth pain, Denies odynophagia, Denies throat swelling, Denies tongue swelling and Reports other (Dentition adequate) Card Reports no additional complaints Resp Reports no additional complaints GI Reports abdominal pain, Denies melena, Denies bloating, Denies hematochezia, Denies constipation, Denies GI cramping, Denies dysphagia, Denies excessive flatus, Denies early satiety, Reports heartburn, Reports diarrhea, Denies nausea, Denies odynophagia, Denies vomiting and Denies hematemesis Musc Reports back pain Skin/Breast Denies pruritus, Denies lesions, Denies rash and Denies jaundice Neuro Reports Normal hearing present and Denies Abnormal speech present Endo Denies fatigue Aller/Immun Denies throat swelling and Denies tongue swelling Physical Exam Vital Signs: Last Vital Signs Pulse 74 04/09/23 14:31 BP 133/60 04/09/23 14:31 BMI result Body Mass Index 31.1 Const General: cooperative, no acute distress, well developed and well groomed Nutritional Appearance: well nourished and obese Orientation/consciousness: oriented to person, oriented to place and oriented to time Limitations: No language barrier HEENT Head: Yes normocephalic and Yes atraumatic Eyes General: appearance normal, both eyes and all related structures Pupils: Equal, round and reactive pupils present Neck Neck: Yes normal visual inspection and Yes no lymphadenopathy Thyroid: Thyroid normal Resp Effort & Inspection: normal respiratory effort and able to speak in complete sentences Auscultation: clear to auscultation bilaterally Cardio Rate: regular rate Rhythm: regular rhythm Heart sounds: Normal, physiologic split S2 sound present Peripheral pulses: radial pulses present and posterior tibial pulses present GI Inspection: No distended, No Abdominal panniculus present and Yes obesity Palpation (GI): Soft to palpation, nontender, no guarding, not rigid and No hepatosplenomegaly present Percussion: Yes normal to percussion Auscultation: normal bowel sounds Rectal Exam - Female: deferred Skin General skin exam: no rashes or lesions noted, turgor normal, skin not dry, no jaundice, No spider nevi and no striae Rashes: no rashes Nails: normal Neuro General: oriented to person, oriented to place and oriented to time Cranial nerves: Yes Equal, round and reactive pupils present and Yes Normal hearing present Speech: No Abnormal speech present Extrem General: Yes normal to inspection, No clubbing, No cyanosis and No edema Psych Appearance: grossly normal and well kempt Mental Status: mental status grossly normal Speech and movement: Normal speech and movement present Affect: normal affect Attitude: cooperative Thought process: Normal thought process present and not confabulating Thought content: Normal thought content present Insight: Fair insight present (Psych) Judgement: Fair judgement present (Psych) Results Reviewed Results Reviewed: Laboratory Tests 02/27/23 10:36 Ferritin 163 Laboratory Tests 02/27/23 02/27/23 03/07/23 10:36 10:36 07:50 GGT 41 H C-Reactive Protein 0.48 Ceruloplasmin 28 Alpha Fetoprotein 1.3 Stool Calprotectin 77 GUILHERME Screen NEGATIVE Anti-Mitochondrial Ab NEGATIVE Anti-Smooth Muscle Ab <20 Tiss Transglutamin IgG <1.0 Tiss Transglutamin IgA <1.0 Hepatitis A IgM Ab Nonreactive Hep Bs Antigen Negative Hep Bs Antibody REACTIVE Hep B Core Total Ab Nonreactive Hepatitis C Ab (EIA) Nonreactive HIV 1&2 Ab/P24 Ag 4thGn Nonreactive Laboratory Tests 12/28/22 17:52 Total Bilirubin 0.4 Direct Bilirubin 0.1 AST 23 ALT 30 Alkaline Phosphatase 89 [facility] IBD shows a genetic propensity toward IBD without being able to discern Crohn's versus ulcerative colitis however with a negative CRP and fecal calprotectin this does not seem the likely source of the problem currently. Assessment & Plan Assessment & Plan (1) E. coli infection: Code(s): A49.8 - Other bacterial infections of unspecified site Plan: EGD/COLONOSCOPY scheduled for 05/24 BIOPSY TODAY'S VISIT She had initial improvement with the Zithromax but then her symptoms returned. We will re treat with a longer course for e coli. She IS having more solid stools which she was never able to have before even with the Carafate. She went back on the carafate when the heavy feeling returned and this helped, but she was off of it for a bit. We review the labs for her liver and WELDON is the dx. She was educated about slow steady weight loss and avoidance of any regular intake of alcohol to try to help keep her liver healthy over her lifetime. She is aware that she has a genetic tendency towards inflammatory bowel disease but given the negative CRP and fecal calprotectin that clearly is not what is happening now. That does not mean that this could not manifest later in her life and that something we could keep an open mind about if she develops additional diarrhea that is unexplained by other means. She seems to feel that the problem started after course of dental antibiotics and probiotics. She has quite a lot of health anxiety particularly that were going to find something balance colonoscopy and she will be ?full of cancer. ? I reassure her by telling her we would have seen something on her CT scan at [facility] where this the case so I am quite sure that this is not. Also, cancer does not respond well to antibiotic treatment. ROV 3 weeks. (2) GERD (gastroesophageal reflux disease): Code(s): K21.9 - Gastro-esophageal reflux disease without esophagitis (3) WELDON (nonalcoholic steatohepatitis): Comment: Baseline labs 02/27/23 the GGT 41 H Ceruloplasmin 28 Alpha Fetoprotein 1.3 the GUILHERME Screen NEGATIVE Anti-Mitochondrial Ab NEGATIVE Anti-Smooth Muscle Ab <20 Tiss Transglutamin IgG <1.0 Tiss Transglutamin IgA <1.0 Hepatitis A IgM Ab Nonreactive Hep Bs Antigen Negative Hep Bs Antibody REACTIVE Hep B Core Total Ab Nonreactive Hepatitis C Ab (EIA) Nonreactive HIV 1&2 Ab/P24 Ag 4thGn Nonreactive Ferritin 163 12/28/22 Total Bilirubin 0.4 Direct Bilirubin 0.1 AST 23 ALT 30 Alkaline Phosphatase 89. CURRENT LABS THE CT ABDOMEN PELVIS PERFORMED AT [facility] 01/08/2023 LIVER: Mild hepatic steatosis diffusely. Gallbladder: Nondistended gallbladder. No calcified stones. No evidence of inflammation. No biliary ductal dilation. The spleen: Normal Code(s): K75.81 - Nonalcoholic steatohepatitis (WELDON) (4) Family history of inflammatory bowel disease: Code(s): Z83.79 - Family history of other diseases of the digestive system Medications: New pantoprazole 40 mg PO BID 60 tabs 6RF A49.8 - Other bacterial infections of unspecified site azithromycin (Zithromax) 2 tablets day 1 then 1 tab for 5 days orally daily; 6 days 7 tabs 0RF A49.8 - Other bacterial infections of unspecified site Coding Level of Care Code Est Pt Level 4 (14950) Diagnoses E. coli infection A49.8 GERD (gastroesophageal reflux disease) K21.9 WELDON (nonalcoholic steatohepatitis) K75.81 Family history of inflammatory bowel disease Z83.79
== END 2023-04-09 15:16 | disposition home or self-care (01) ==
PROVIDERS: PCP Internal Medicine; Visit Provider Nurse Practitioner
DX: A49.8 Other bacterial infections of unspecified site (principal); K21.9 Gastro-esophageal reflux disease without esophagitis; K75.81 Nonalcoholic steatohepatitis (NASH); Z83.79 Family history of other diseases of the digestive system
CPT/HCPCS: 99214

== ENCOUNTER → 2023-04-09 14:25 | Outpatient (BNVA) | payer OTHER, SELFPAY | PROVIDERS: PCP Internal Medicine; Visit Provider Nurse Practitioner ==

== ENCOUNTER 2023-05-01 15:56 | Outpatient (AMB) | payer OTHER, SELFPAY ==
[2023-05-01 16:01] VITALS: BP 109/66; BMI 31.4
--- NOTE | 2023-05-01 16:01 | A.OFFVIS_ITS ---
Intake Vital Signs 05/01/23 16:01 Height 5 ft 7 in Weight 200 lb 9.93 oz BMI 31.4 BP 109/66 Blood Pressure Location Lt brachial Position Sitting Intake Visit Reasons: 4 week follow up Intake Note: Patient returns to in office 4 weeks follow up of diarrhea. CC: Patient reports she is feeling better today. She completed the course of abx and diarrhea has resolved now. Denies other GI symptoms. Resource Analyst Required: No Accompanied by: Self / Same As Patient Allergies No Known Drug Allergies Allergy (Unknown, Verified 04/09/23 14:33) none avocado Adverse Reaction (Verified 04/09/23 14:33) Nausea HPI 4 week follow up HPI Details Assessment & Plan (1) E. coli infection: Code(s): A49.8 - Other bacterial infections of unspecified site Plan: She had initial improvement with the Zithromax but then her symptoms returned. We will re treat with a longer course for e coli. She IS having more solid stools which she was never able to have before even with the Carafate. She went back on the carafate when the heavy feeling returned and this helped, but she was off of it for a bit. We review the labs for her liver and WELDON is the dx. She was educated about slow steady weight loss and avoidance of any regular intake of alcohol to try to help keep her liver healthy over her lifetime. She is aware that she has a genetic tendency towards inflammatory bowel disease but given the negative CRP and fecal calprotectin that clearly is not what is happening now. That does not mean that this could not manifest later in her life and that something we could keep an open mind about if she develops additional diarrhea that is unexplained by other means. She seems to feel that the problem started after course of dental antibiotics and probiotics. She has quite a lot of health anxiety particularly that were going to find something balance colonoscopy and she will be ?full of cancer. ? I reassure her by telling her we would have seen something on her CT scan at [facility] where this the case so I am quite sure that this is not. Also, cancer does not respond well to antibiotic treatment. ROV 3 weeks. (2) GERD (gastroesophageal reflux diseas e): Code(s): K21.9 - Gastro-esophageal reflux disease without esophagitis (3) WELDON (nonalcoholic steatohepatitis): Comment: Baseline labs 02/27/23 the GGT 41 H Ceruloplasmin 28 Alpha Fetoprotein 1.3 the GUILHERME Screen NEGATIVE Anti-Mitochondrial Ab NEGATIVE Anti-Smooth Muscle Ab <20 Tiss Transglutamin IgG <1.0 Tiss Transglutamin IgA <1.0 Hepatitis A IgM Ab Nonreactive Hep Bs Antigen Negative Hep Bs Antibody REACTIVE Hep B Core Total Ab Nonreactive Hepatitis C Ab (EIA) Nonreactive HIV 1&2 Ab/P24 Ag 4thGn Nonreactive Ferritin 163 12/28/22 Total Bilirubin 0.4 Direct Bilirubin 0.1 AST 23 ALT 30 Alkaline Phosphatase 89. CURRENT LABS THE CT ABDOMEN PELVIS PERFORMED AT [facility] 01/08/2023 LIVER: Mild hepatic steatosis diffusely. Gallbladder: Nondistended gallbladder. No calcified stones. No evidence of inflammation. No biliary ductal dilation. The spleen: Normal Code(s): K75.81 - Nonalcoholic steatohepatitis (WELDON) (4) Family history of inflammatory bowel disease: Code(s): Z83.79 - Family history of other diseases of the digestive system Medications: New pantoprazole 40 mg PO BID 60 t abs 6RF A49.8 - Other bact erial infections o f unspecified site azithromycin (Zith romax) 2 tablets day 1 t hen 1 tab for 5 da ys orally daily; 6 days 7 tabs 0RF A49.8 - Other bact erial infections o f unspecified site EGD/COLONOSCOPY scheduled for TODAY'S VISIT She is now doing very well after her 2nd round of Zithromax. She no longer feels bloated or has any of the pain although she still feels a little ?sticky? in the lower abdomen. However she feels like she is recovering well. She continues on her pantoprazole twice a day for her GERD. She has her EGD/colonoscopy coming up and already has an appointment for follow- up 06/05/2023 so we will keep that appointment. [facility] Surgical History Hx of tonsillectomy Family History Father WELDON (nonalcoholic steatohepatitis) Liver transplanted Crohn disease Social History Alcohol intake: current Alcohol intake frequency: holidays/special occasions only Patient Tobacco Use Status: Current someday Tobacco user Review of Systems Const Denies fatigue, Denies fever(s), Denies night sweats, Denies poor appetite and Denies weight loss ENT Reports Normal hearing present, Denies dental pain, Denies dysphagia, Denies hearing loss, Denies mouth pain, Denies odynophagia, Denies throat swelling, Denies tongue swelling and Reports other (Dentition adequate) Card Reports no additional complaints Resp Reports no additional complaints GI Denies abdominal pain, Denies melena, Denies bloating, Denies hematochezia, Denies constipation, Denies GI cramping, Denies dysphagia, Denies excessive flatus, Denies early satiety, Reports heartburn, Denies diarrhea, Denies nausea, Denies odynophagia, Denies vomiting and Denies hematemesis Skin/Breast Denies pruritus, Denies lesions, Denies rash and Denies jaundice Neuro Reports Normal hearing present and Denies Abnormal speech present Endo Denies fatigue Aller/Immun Denies throat swelling and Denies tongue swelling Physical Exam Vital Signs: BMI result Body Mass Index 31.4 Const General: cooperative, no acute distress, well developed and well groomed Nutritional Appearance: well nourished and obese Orientation/consciousness: oriented to person, oriented to place and oriented to time Limitations: No language barrier HEENT Head: Yes normocephalic and Yes atraumatic Eyes General: appearance normal, both eyes and all related structures Pupils: Equal, round and reactive pupils present Neck Neck: Yes normal visual inspection and Yes no lymphadenopathy Thyroid: Thyroid normal Resp Effort & Inspection: normal respiratory effort and able to speak in complete sentences Auscultation: clear to auscultation bilaterally Cardio Rate: regular rate Rhythm: regular rhythm Heart sounds: Normal, physiologic split S2 sound present Peripheral pulses: radial pulses present and posterior tibial pulses present GI Inspection: No distended, No Abdominal panniculus present and Yes obesity Palpation (GI): Soft to palpation, nontender, no guarding, not rigid and No hepatosplenomegaly present Percussion: Yes normal to percussion Auscultation: normal bowel sounds Rectal Exam - Female: deferred Skin General skin exam: no rashes or lesions noted, turgor normal, skin not dry, no jaundice, No spider nevi and no striae Rashes: no rashes Nails: normal Neuro General: oriented to person, oriented to place and oriented to time Cranial nerves: Yes Equal, round and reactive pupils present and Yes Normal hearing present Speech: No Abnormal speech present Extrem General: Yes normal to inspection, No clubbing, No cyanosis and No edema Psych Appearance: grossly normal and well kempt Mental Status: mental status grossly normal Speech and movement: Normal speech and movement present Affect: normal affect Attitude: cooperative Thought process: Normal thought process present and not confabulating Thought content: Normal thought content present Insight: Good insight present (Psych) Judgement: Good judgement present (Psych) Assessment & Plan Assessment & Plan (1) Diarrhea: Code(s): R19.7 - Diarrhea, unspecified Plan: She is now doing very well after her 2nd round of Zithromax. She no longer feels bloated or has any of the pain although she still feels a little ?sticky? in the lower abdomen. However she feels like she is recovering well. She continues on her pantoprazole twice a day for her GERD. She has her EGD/colonoscopy coming up and already has an appointment for follow- up 06/05/2023 so we will keep that appointment. EGD/COLONOSCOPY scheduled for (2) GERD (gastroesophageal reflux disease): Code(s): K21.9 - Gastro-esophageal reflux disease without esophagitis (3) E. coli infection: Code(s): A49.8 - Other bacterial infections of unspecified site (4) WELDON (nonalcoholic steatohepatitis): Comment: Baseline labs 02/27/23 the GGT 41 H Ceruloplasmin 28 Alpha Fetoprotein 1.3 the GUILHERME Screen NEGATIVE Anti-Mitochondrial Ab NEGATIVE Anti-Smooth Muscle Ab <20 Tiss Transglutamin IgG <1.0 Tiss Transglutamin IgA <1.0 Hepatitis A IgM Ab Nonreactive Hep Bs Antigen Negative Hep Bs Antibody REACTIVE Hep B Core Total Ab Nonreactive Hepatitis C Ab (EIA) Nonreactive HIV 1&2 Ab/P24 Ag 4thGn Nonreactive Ferritin 163 12/28/22 Total Bilirubin 0.4 Direct Bilirubin 0.1 AST 23 ALT 30 Alkaline Phosphatase 89. CURRENT LABS THE CT ABDOMEN PELVIS PERFORMED AT [facility] 01/08/2023 LIVER: Mild hepatic steatosis diffusely. Gallbladder: Nondistended gallbladder. No calcified stones. No evidence of inflammation. No biliary ductal dilation. The spleen: Normal Code(s): K75.81 - Nonalcoholic steatohepatitis (WELDON) Coding Level of Care Code Est Pt Level 3 (44013) Diagnoses Diarrhea R19.7 GERD (gastroesophageal reflux disease) K21.9 E. coli infection A49.8 WELDON (nonalcoholic steatohepatitis) K75.81
== END 2023-05-01 16:13 | disposition home or self-care (01) ==
PROVIDERS: PCP Internal Medicine; Visit Provider Nurse Practitioner
DX: R19.7 Diarrhea, unspecified (principal); K21.9 Gastro-esophageal reflux disease without esophagitis; A49.8 Other bacterial infections of unspecified site; K75.81 Nonalcoholic steatohepatitis (NASH)
CPT/HCPCS: 99213

== ENCOUNTER → 2023-05-01 15:56 | Outpatient (BNVA) | payer OTHER, SELFPAY | PROVIDERS: PCP Internal Medicine; Visit Provider Nurse Practitioner ==

== ENCOUNTER 2023-05-24 11:48 | Day surgery (SDC) | payer OTHER, SELFPAY ==
[2023-05-22 15:33] VITALS: BMI 31.4
--- NOTE | 2023-05-23 12:31 | HO.ANESPROP2 ---
Documented by User: Aniya Carballo NP 05/23/23 12:33 HPI - Anesthesia Eval Consult details Narrative: 53yo F for Upper Endoscopy and Colonoscopy PMFSH Active Problems Active Problems: All Active Problems (Updated 04/09/23 @ 16:06 by MARTINE Baker) Family history of inflammatory bowel disease (Acute) WELDON (nonalcoholic steatohepatitis) (Acute) E. coli infection (Acute) Abdominal pain (Acute) Transaminitis (Acute) Rectal bleeding (Acute) Diarrhea (Acute) Smoker (Acute) GERD (gastroesophageal reflux disease) (Acute) Obesity (Acute) Past Medical History Medical History (Updated 05/23/23 @ 12:32 by Ora Duke RN) GERD (gastroesophageal reflux disease) WELDON (nonalcoholic steatohepatitis) Family History Family History Father WELDON (nonalcoholic steatohepatitis) Liver transplanted Crohn disease Surgical History Surgical History Hx of tonsillectomy Social History Social History Alcohol intake: current Alcohol intake frequency: holidays/special occasions only Patient Tobacco Use Status: Current someday Tobacco user Use of substances other than those prescribed or required for medical reasons: Yes Substance Use Frequency: Daily Are you DNR?: No Advance Directives: No Advance Directives Information Provided: Yes Meds Allergies Allergy/AdvReac Type Severity Reaction Status Date / Time No Known Drug Allergies Allergy Unknown none Verified 04/09/23 14:33 avocado AdvReac Nausea Verified 04/09/23 14:33 Home Medications Medication Instructions Recorded Confirmed Last Taken Type sucralfate 1 gram tablet 1 g PO BID 02/27/23 Unknown History Exam Exam Date and Time: May 23, 2023 1231 Height,Weight and Vital Signs: Height 5 ft 7 in Weight 91.002 kg Pertinent Lab Results Pertinent Lab Results: Laboratory Tests 12/28/22 17:52 WBC 9.2 Hgb 13.5 Hct 40.5 Plt Count 332 Sodium 143 Potassium 3.8 Chloride 107 Carbon Dioxide 24 BUN 13 Creatinine 0.87 Assessment and Plan Assessment Anesthesia Assessment: Chart Reviewed Documented by User: Wendy Barrios MD 05/24/23 12:29 PMF Past Medical History Medical History (Updated 05/23/23 @ 12:32 by Ora Duke RN) GERD (gastroesophageal reflux disease) WELDON (nonalcoholic steatohepatitis) Family History Family History Father WELDON (nonalcoholic steatohepatitis) Liver transplanted Crohn disease Family history of problems with anesthesia: No Surgical History Surgical History Hx of tonsillectomy History of Problems with Anesthesia: No Social History Social History Alcohol intake: current Alcohol intake frequency: holidays/special occasions only Patient Tobacco Use Status: Current someday Tobacco user Use of substances other than those prescribed or required for medical reasons: Yes Substance Use Frequency: Daily Are you DNR?: No Advance Directives: No Advance Directives Information Provided: Yes Meds Allergies Allergy/AdvReac Type Severity Reaction Status Date / Time No Known Drug Allergies Allergy Unknown none Verified 04/09/23 14:33 avocado AdvReac Nausea Verified 04/09/23 14:33 Home Medications Medication Instructions Recorded Confirmed Last Taken Type sucralfate 1 gram tablet 1 g PO BID 02/27/23 Unknown History Exam Airway Mallampati Class: II (multiple caps top front and everywhere) TM Dist: >3cm Neck ROM: Full Heart: rrr Lungs: cta Assessment and Plan Assessment Anesthesia Assessment: Anesthesia Plan Discussed Final Anesthetic Review Family History of Problems with Anesthesia: No History of Problems with Anesthesia: No NPO: Yes ASA Class: III Final Preanesthetic Review: No Changes in Pt Med Stat, Meds/Allgs Chart Reviewed and Consent Obtained/Reviewed Patient Risk: Intermediate Procedure Risk: Intermediate Anesthetic Plan Anesthetic Plan: MAC: Disposition: Standard PACU
[2023-05-24 12:01] VITALS: BP 132/55; PULSE 77; RESP 16; TEMP 36.9; O2SAT 97
[2023-05-24] MEDS: Lactated Ringers 1,000 ML 100 ML IVCONT (12:19)
--- NOTE | 2023-05-24 12:33 | MHC.SHP ---
Pre-Procedural Eval Section A Date of Service: 05/24/23 The patient is an INPATIENT: No Changes since office visit: Yes Patient answered all questions; No Cold of Flu in the past 2 weeks, No New Medical Problems and No Changes in Medication The History & Physical has been completed within 30 days and I have reviewed it.: Yes Section B Chief Complaint: GERD, Diarrhea, unspecified Allergies: Allergies Allergy/AdvReac Type Severity Reaction Status Date / Time No Known Drug Allergies Allergy Unknown none Verified 04/09/23 14:33 avocado AdvReac Nausea Verified 04/09/23 14:33 Plan Diagnosis/Plan: Unchanged I have reviewed the history and physical and performed a pertinent physical examination on my patient. No changes have occurred unless specified. Time Spent With Patient Time: Total time managing care of this patient today ____ minutes.
--- NOTE | 2023-05-24 12:41 | W.PM.OPN ---
Operative Note Operative Note Date of Service: 05/24/23 Narrative: FLEXIBLE TRANSORAL UPPER GASTROINTESTINAL ENDOSCOPY WITH BIOPSIES AND COLONOSCOPY TILL CECUM WITH BIOPSIES, SNARE POLYPECTOMY, SUBMUCOSAL INJECTION AND HEMOCLIP PLACEMENT Pre-op diagnosis: Abdominal pain, bloating, chronic diarrhea, GERD Post-op diagnosis: Gastritis, gastric polyps, gastric antral nodules, colon polyps, diverticulosis, hemorrhoids? Endoscopist:? Lexus Liang MD Anesthesia:?MAC UPPER ENDOSCOPY Consent: Indications for the procedure and potential complications of bleeding, perforation, reaction to medications and missed diagnosis were discussed with the patient and informed consent was obtained. Instrument: Olympus GIF H 190 mid size upper endoscope Monitoring: Vital signs and clinical assessment, continuous EKG monitoring, Pulse oximetry, Carbon Dioxide monitoring and blood pressure monitoring were done throughout the procedure. Procedure: The patient was placed in the left lateral decubitis position and pre-procedure medications were administered and a bite block was placed. The endoscope was inserted into the mouth and advanced under direct vision to the third part of duodenum. A careful inspection was made as the upper endoscope was withdrawn including a retroflexed examination of the proximal stomach; Findings and interventions are described below. Findings: Larynx: Normal Esophagus: GE junction at 36 cms. No esophagitis or Lindsay's. Stomach: Moderate diffuse gastric erythema with nodular appearing gastric mucosa. Biopsies were obtained from the antrum and body of the stomach. A few 5 to 10 mm benign appearing polyps in the fundus and body - biopsied. Three 7-8 mm nodules in the antrum with central erosions - biopsied. Grade 2 flap valve on retroflexed examination of the cardia. Duodenum: Normal bulb and descending duodenum. Biopsies were obtained from 3rd part of the duodenum to check for celiac sprue Intervention: Biopsies as noted above COLONOSCOPY PROCEDURE NOTE Consent: Indications for the procedure and potential complications of bleeding, perforation, reaction to medications and missed diagnosis were discussed with the patient and informed consent was obtained. Instrument: Olympus PCF H 190 L variable stiffness pediatric colonoscope Monitoring: Vital signs and clinical assessment, intermittent blood pressure monitoring, continuous EKG monitoring, Pulse oximetry and Carbon Dioxide monitoring were done throughout the procedure. Colon withdrawl time was 42 minutes. Procedure: The patient was placed in the left lateral decubitis position and pre-procedure medications were administered. After a digital rectal examination of the ano-rectum, the video colonoscope was inserted into the rectum and advanced through the colon to the cecum. The colonoscope was slowly withdrawn in a retrograde panoramic fashion and the colon mucosa was carefully examined including a retroflexed view of the rectum. Findings and interventions are described below. Procedure Difficulty: There was narrowing in the sigmoid colon at 25 to 30 cms due to severe diverticulosis which was navigated with some difficulty Findings: Terminal Ileum: Distal 5 cm was examined and appeared normal Cecum: Normal Ascending Colon: A 10 mm flat polyp raised with 3 cc of Eleview and removed with a hot snare. A 2 cms flat polyp at 90 cms in the distal AC - raised with 2 cc of Eleview and removed with a hot stiff snare. Polypectomy site was marked with Vaishali ink Transverse Colon: Three 10-15 mm sessile polyps - removed with a hot snare Descending Colon: Moderate diverticulosis Sigmoid Colon: A 2.5 cms pedunculated hemorrhagic appearing polyp (on a long pedicle) at 18 cms - removed with a hot snare. Polypectomy sites was closed with 1 hemoclip. Severe diverticulosis with luminal narrowing Rectum: Normal Ano-rectum: Moderate internal hemorrhoids Colon preparation: Good after some irrigation Impression and Post Procedure Diagnosis: Endoscopy Findings: STOMACH: Moderate diffuse gastric erythema with nodular appearing gastric mucosa. Biopsies were obtained from the antrum and body of the stomach. A few 5 to 10 mm benign appearing polyps in the fundus and body - biopsied. Three 7-8 mm nodules in the antrum with central erosions - biopsied. DUODENUM: Normal - biopsied to check for celiac sprue Colonoscopy Findings: Six medium sized polyps removed Random biopsies were obtained from right and left colon to check for microscopic colitis Moderate diverticulosis seen in the left colon Moderate hemorrhoids on retroflexed exam. Plan: Await pathology results Patient has an appointment on 06/05/23 in the [facility] with Elyssa Cole NP. Repeat Colonoscopy interval based on path results - in 2 years if polyps are adenomatous and 10 years if polyps are hyperplastic. Above findings were reviewed with the patient and gastric polyps, colon polyps and diverticulosis handouts were given in the discharge area BIOPSIES SHOWED: A. Duodenum, biopsy: Duodenal mucosa with preserved villi and no specific change; no evidence of celiac disease. B. Gastric antrum, biopsy: Gastric antral mucosa with minimal chronic inactive gastritis; negative for H pylori, intestinal metaplasia and dysplasia. C. Gastric nodule, biopsy: Gastric antral mucosa with reactive changes, intestinal metaplasia, and minimal chronic inactive gastritis; negative for H pylori, and dysplasia. D. Gastric polyp, biopsy: Gastric body mucosa with features suggesting proton pump inhibitor effect, and minimal chronic inactive gastritis; negative for H pylori, intestinal metaplasia and dysplasia. E. Gastric body, biopsy: Gastric body mucosa with features suggesting proton pump inhibitor effect, and minimal chronic inactive gastritis; negative for H pylori, intestinal metaplasia and dysplasia. F. Colon, right, biopsy: Colonic mucosa with no specific change; no evidence of microscopic colitis. G. Colon, ascending, polyps: Tubular adenoma, one; negative for high grade dysplasia and carcinoma, and sessile serrated lesion/polyp with dysplasia; multiple pieces. H. Colon, transverse, polyp: Tubular adenoma; negative for high grade dysplasia and carcinoma. I. Colon, left, biopsy: Colonic mucosa with no specific change; no evidence of microscopic colitis. J. Colon, sigmoid at 18 cm, polyp: Tubular adenoma, completely excised; negative for high grade dysplasia and carcinoma Pt placed on a 2 year recall list
[2023-05-24 13:57] VITALS: BP 116/67; PULSE 79; RESP 16; TEMP 36.2; O2SAT 97
[2023-05-24 14:12] VITALS: BP 116/42; PULSE 78; RESP 16; TEMP 36.2; O2SAT 98
== END 2023-05-24 14:25 | disposition home or self-care (01) ==
PROVIDERS: PCP Internal Medicine; Visit Provider Internal Medicine Gastroenterology
PROC: (CPT 43239; principal; 2023-05-24 13:30)
DX: K31.7 Polyp of stomach and duodenum (principal); K31.89 Other diseases of stomach and duodenum; K29.70 Gastritis, unspecified, without bleeding; K21.9 Gastro-esophageal reflux disease without esophagitis; D12.2 Benign neoplasm of ascending colon; D12.3 Benign neoplasm of transverse colon; D12.5 Benign neoplasm of sigmoid colon; K57.30 Diverticulosis of large intestine without perforation or abscess without bleeding; K64.8 Other hemorrhoids; R19.7 Diarrhea, unspecified; A49.8 Other bacterial infections of unspecified site; K75.81 Nonalcoholic steatohepatitis (NASH); F17.200 Nicotine dependence, unspecified, uncomplicated; E66.9 Obesity, unspecified; Z68.31 Body mass index [BMI] 31.0-31.9, adult; Z83.79 Family history of other diseases of the digestive system
CPT/HCPCS: 43239; 45380; 45385; 45381; 88305; 88342; J2704

== ENCOUNTER → 2023-05-24 11:48 | Outpatient (BNV) | payer OTHER, SELFPAY | PROVIDERS: PCP Internal Medicine; Visit Provider Internal Medicine Gastroenterology | DX: K58.9 Irritable bowel syndrome, unspecified (principal); K21.9 Gastro-esophageal reflux disease without esophagitis; K31.7 Polyp of stomach and duodenum | CPT/HCPCS: 99499 ==

== ENCOUNTER 2023-06-05 15:06 | Outpatient (AMB) | payer OTHER, SELFPAY ==
--- NOTE | 2023-06-05 15:10 | MHC.OFFVIS ---
Intake Vital Signs 06/05/23 15:16 Height 5 ft 7 in Weight 200 lb 2.876 oz BMI 31.3 BP 120/48 L Blood Pressure Location Lt brachial Position Sitting Pulse 64 Intake Visit Reasons: S/p DBL Intake Note: Patient returns to in office post op s/p colonoscopy and EGD. CC: Patient underwent colonoscopy and EGD on 05/24/[address] Liang. Healthcare Management Consultant Required: No Accompanied by: Self / Same As Patient Allergies No Known Drug Allergies Allergy (Unknown, Verified 06/05/23 15:16) none avocado Adverse Reaction (Verified 06/05/23 15:16) Nausea HPI S/p DBL HPI Details Assessment & Plan (1) Diarrhea: Code(s): R19.7 - Diarrhea, unspecified Plan: She is now doing very well after her 2nd round of Zithromax. She no longer feels bloated or has any of the pain although she still feels a little ?sticky? in the lower abdomen. However she feels like she is recovering well. She continues on her pantoprazole twice a day for her GERD. She has her EGD/colonoscopy coming up and already has an appointment for follow-up 06/05/2023 so we will keep that appointment. EGD/COLONOSCOPY 05/24/23 Findings: Larynx: Normal Esophagus: GE junction at 36 cms. No esophagitis or Lindsay's. Stomach: Moderate diffuse gastric erythema with nodular appearing gastric mucosa. Biopsies were obtained from the antrum and body of the stomach. A few 5 to 10 mm benign appearing polyps in the fundus and body - biopsied. Three 7-8 mm nodules in the antrum with central erosions - biopsied. Grade 2 flap valve on retroflexed examination of the cardia. Duodenum: Normal bulb and descending duodenum. Biopsies were obtained from 3rd part of the duodenum to check for celiac sprue indings: Terminal Ileum: Distal 5 cm was examined and appeared normal Cecum: Normal Ascending Colon: A 10 mm flat polyp raised with 3 cc of Eleview and removed with a hot snare. A 2 cms flat polyp at 90 cms in the distal AC - raised with 2 cc of Eleview and removed with a hot stiff snare. Polypectomy site was marked with Vaishali ink Transverse Colon: Three 10-15 mm sessile polyps - removed with a hot snare Descending Colon: Moderate diverticulosis Sigmoid Colon: A 2.5 cms pedunculated hemorrhagic appearing polyp (on a long pedicle) at 18 cms - removed with a hot snare. Polypectomy sites was closed with 1 hemoclip. Severe diverticulosis with luminal narrowing Rectum: Normal Ano-rectum: Moderate internal hemorrhoids Colon preparation: Good after some irrigation Impression and Post Procedure Diagnosis: Endoscopy Findings: STOMACH: Moderate diffuse gastric erythema with nodular appearing gastric mucosa. Biopsies were obtained from the antrum and body of the stomach. A few 5 to 10 mm benign appearing polyps in the fundus and body - biopsied. Three 7-8 mm nodules in the antrum with central erosions - biopsied. DUODENUM: Normal - biopsied to check for celiac sprue Colonoscopy Findings: Six medium sized polyps removed Random biopsies were obtained from right and left colon to check for microscopic colitis Moderate diverticulosis seen in the left colon Moderate hemorrhoids on retroflexed exam. Plan: Await pathology results Patient has an appointment on 06/05/23 in the GI Clinic with Elyssa Cole NP. Repeat Colonoscopy interval based on path results - in 2 years if polyps are adenomatous and 10 years if polyps are hyperplastic. BIOPSY Received: 05/24/23 Diagnosis A. Duodenum, biopsy: Duodenal mucosa with preserved villi and no specific change; no evidence of celiac disease. B. Gastric antrum, biopsy: Gastric antral mucosa with minimal chronic inactive gastritis; negative for H pylori, intestinal metaplasia and dysplasia. C. Gastric nodule, biopsy: Gastric antral mucosa with reactive changes, intestinal metaplasia, and minimal chronic inactive gastritis; negative for H pylori, and dysplasia. D. Gastric polyp, biopsy: Gastric body mucosa with features suggesting proton pump inhibitor effect, and minimal chronic inactive gastritis; negative for H pylori, intestinal metaplasia and dysplasia. E. Gastric body, biopsy: Gastric body mucosa with features suggesting proton pump inhibitor effect, and minimal chronic inactive gastritis; negative for H pylori, intestinal metaplasia and dysplasia. F. Colon, right, biopsy: Colonic mucosa with no specific change; no evidence of microscopic colitis. G. Colon, ascending, polyps: Tubular adenoma, one; negative for high grade dysplasia and carcinoma, and sessile serrated lesion/polyp with dysplasia; multiple pieces. H. Colon, transverse, polyp: Tubular adenoma; negative for high grade dysplasia and carcinoma. I. Colon, left, biopsy: Colonic mucosa with no specific change; no evidence of microscopic colitis. J. Colon, sigmoid at 18 cm, polyp: Tubular adenoma, completely excised; negative for high grade dysplasia and carcinoma (2) GERD (gastroesophageal reflux disease): Code(s): K21.9 - Gastro-esophageal reflux disease without esophagitis (3) E. coli infection: Code(s): A49.8 - Other bacterial infections of unspecified site (4) WELDON (nonalcoholic steatohepatitis): Comment: Baseline labs 02/27/23 the GGT 41 H Ceruloplasmin 28 Alpha Fetoprotein 1.3 the GUILHERME Screen NEGATIVE Anti-Mitochondrial Ab NEGATIVE Anti-Smooth Muscle Ab <20 Tiss Transglutamin IgG <1.0 Tiss Transglutamin IgA <1.0 Hepatitis A IgM Ab Nonreactive Hep Bs Antigen Negative Hep Bs Antibody REACTIVE Hep B Core Total Ab Nonreactive Hepatitis C Ab (EIA) Nonreactive HIV 1&2 Ab/P24 Ag 4thGn Nonreactive Ferritin 163 12/28/22 Total Bilirubin 0.4 Direct Bilirubin 0.1 AST 23 ALT 30 Alkaline Phosphatase 89. CURRENT LABS THE CT ABDOMEN PELVIS PERFORMED AT [facility] 01/08/2023 LIVER: Mild hepatic steatosis diffusely. Gallbladder: Nondistended gallbladder. No calcified stones. No evidence of inflammation. No biliary ductal dilation. The spleen: Normal Code(s): K75.81 - Nonalcoholic steatohepatitis (WELDON) EGD/COLONOSCOPY 05/24/23 Findings: Larynx: Normal Esophagus: GE junction at 36 cms. No esophagitis or Lindsay's. Stomach: Moderate diffuse gastric erythema with nodular appearing gastric mucosa. Biopsies were obtained from the antrum and body of the stomach. A few 5 to 10 mm benign appearing polyps in the fundus and body - biopsied. Three 7-8 mm nodules in the antrum with central erosions - biopsied. Grade 2 flap valve on retroflexed examination of the cardia. Duodenum: Normal bulb and descending duodenum. Biopsies were obtained from 3rd part of the duodenum to check for celiac sprue Findings: Terminal Ileum: Distal 5 cm was examined and appeared normal Cecum: Normal Ascending Colon: A 10 mm flat polyp raised with 3 cc of Eleview and removed with a hot snare. A 2 cms flat polyp at 90 cms in the distal AC - raised with 2 cc of Eleview and removed with a hot stiff snare. Polypectomy site was marked with Vaishali ink Transverse Colon: Three 10-15 mm sessile polyps - removed with a hot snare Descending Colon: Moderate diverticulosis Sigmoid Colon: A 2.5 cms pedunculated hemorrhagic appearing polyp (on a long pedicle) at 18 cms - removed with a hot snare. Polypectomy sites was closed with 1 hemoclip. Severe diverticulosis with luminal narrowing Rectum: Normal Ano-rectum: Moderate internal hemorrhoids Colon preparation: Good after some irrigation Impression and Post Procedure Diagnosis: Endoscopy Findings: STOMACH: Moderate diffuse gastric erythema with nodular appearing gastric mucosa. Biopsies were obtained from the antrum and body of the stomach. A few 5 to 10 mm benign appearing polyps in the fundus and body - biopsied. Three 7-8 mm nodules in the antrum with central erosions - biopsied. DUODENUM: Normal - biopsied to check for celiac sprue Colonoscopy Findings: Six medium sized polyps removed Random biopsies were obtained from right and left colon to check for microscopic colitis Moderate diverticulosis seen in the left colon Moderate hemorrhoids on retroflexed exam. Plan: Await pathology results Patient has an appointment on 06/05/23 in the GI Clinic with Elyssa Cole NP. Repeat Colonoscopy interval based on path results - in 2 years if polyps are adenomatous and 10 years if polyps are hyperplastic. BIOPSY Received: 05/24/23 Diagnosis A. Duodenum, biopsy: Duodenal mucosa with preserved villi and no specific change; no evidence of celiac disease. B. Gastric antrum, biopsy: Gastric antral mucosa with minimal chronic inactive gastritis; negative for H pylori, intestinal metaplasia and dysplasia. C. Gastric nodule, biopsy: Gastric antral mucosa with reactive changes, intestinal metaplasia, and minimal chronic inactive gastritis; negative for H pylori, and dysplasia. D. Gastric polyp, biopsy: Gastric body mucosa with features suggesting proton pump inhibitor effect, and minimal chronic inactive gastritis; negative for H pylori, intestinal metaplasia and dysplasia. E. Gastric body, biopsy: Gastric body mucosa with features suggesting proton pump inhibitor effect, and minimal chronic inactive gastritis; negative for H pylori, intestinal metaplasia and dysplasia. F. Colon, right, biopsy: Colonic mucosa with no specific change; no evidence of microscopic colitis. G. Colon, ascending, polyps: Tubular adenoma, one; negative for high grade dysplasia and carcinoma, and sessile serrated lesion/polyp with dysplasia; multiple pieces. H. Colon, transverse, polyp: Tubular adenoma; negative for high grade dysplasia and carcinoma. I. Colon, left, biopsy: Colonic mucosa with no specific change; no evidence of microscopic colitis. J. Colon, sigmoid at 18 cm, polyp: Tubular adenoma, completely excised; negative for high grade dysplasia and carcinoma CORRESPONDENCE On 05/10/23 @ 11:36 Elyssa Cole Wrote To Cole (2) I think it is time to try different antibiotic. I am going to send a course of Cipro. On 05/10/23 @ 10:18 Windy Bradford Wrote To Kelsey telephone call to patient who describes stomach heaviness (again) - patient reports she recently saw you and was fine but states it has been a couple days now where it has started up again. patient states she has some mild diarrhea, x2 episodes. patient denies any other s/s. TODAY'S VISIT She had her mouth cut up by the mouthpiece for the EGD, she though it was a tooth problem. She saw her dentist to put on amoxicillin which was all the problem in about a week. Her diarrhea has stopped and she never had to take the Cipro. We reviewed the EGD and the colonoscopy and she is agreeable to the 2 year recall for the colonoscopy but because of the above complication is not in favor of having another endoscopy. This is not needed for surveillance so hopefully she will never have a situation where she needs another endoscopy. SHE HAD A VERY HARD TIME WITH THE PEG PREP, TRY FOR DIFFERENT NEXT TIME (TASTE). Fortunately her diarrhea has stopped. Her appetite is also better and she is not having heartburn. She still has the feeling of heaviness when she bends down, for example to put on pants, but she finds this tolerable at least for now. She is no longer taking any acid reducing medications and since she is not having symptoms of course this is fine. It would seem that all of the irritation in the symptoms were definitively link the E coli infection. The endoscopy definitely did not seem to show any signs of Crohn's disease, but again this can be elusive sometimes to diagnose giving the exacerbating remitting nature of the disease. As were no longer actively her for anything we will put her on a 2 year recall list but she is welcome to return to our service should any other problems arise.. [facility] Medical History GERD (gastroesophageal reflux disease) WELDON (nonalcoholic steatohepatitis) Surgical History (Updated 06/05/23 @ 15:18 by CORRIE Marte) History of esophagogastroduodenoscopy (EGD) H/O colonoscopy Hx of tonsillectomy Family History Father WELDON (nonalcoholic steatohepatitis) Liver transplanted Crohn disease Alcohol intake: current Alcohol intake frequency: holidays/special occasions only Patient Tobacco Use Status: Current someday Tobacco user Review of Systems Const Denies fatigue, Denies fever(s), Denies night sweats, Denies poor appetite and Denies weight loss ENT Reports Normal hearing present, Denies dental pain, Denies dysphagia, Denies hearing loss, Denies mouth pain, Denies odynophagia, Denies throat swelling, Denies tongue swelling and Reports other (Dentition adequate) Card Reports no additional complaints Resp Reports no additional complaints GI Reports abdominal pain, Denies melena, Denies bloating, Denies hematochezia, Denies constipation, Denies GI cramping, Denies dysphagia, Denies excessive flatus, Denies early satiety, Denies heartburn, Denies diarrhea, Denies nausea, Denies odynophagia, Denies vomiting and Denies hematemesis Skin/Breast Denies pruritus, Denies lesions, Denies rash and Denies jaundice Neuro Reports Normal hearing present and Denies Abnormal speech present Endo Denies fatigue Aller/Immun Denies throat swelling and Denies tongue swelling Physical Exam Vital Signs: Last Vital Signs Pulse 64 06/05/23 15:16 BP 120/48 L 06/05/23 15:16 BMI result Body Mass Index 31.3 Const General: cooperative, no acute distress, well developed and well groomed Nutritional Appearance: well nourished and obese Orientation/consciousness: oriented to person, oriented to place and oriented to time Limitations: No language barrier HEENT Head: Yes normocephalic and Yes atraumatic Eyes General: appearance normal, both eyes and all related structures Pupils: Equal, round and reactive pupils present Neck Neck: Yes normal visual inspection and Yes no lymphadenopathy Thyroid: Thyroid normal Resp Effort & Inspection: normal respiratory effort and able to speak in complete sentences Auscultation: clear to auscultation bilaterally Cardio Rate: regular rate Rhythm: regular rhythm Heart sounds: Normal, physiologic split S2 sound present Peripheral pulses: radial pulses present and posterior tibial pulses present GI Inspection: No distended, No Abdominal panniculus present and Yes obesity Palpation (GI): Soft to palpation, nontender, no guarding, not rigid and No hepatosplenomegaly present Percussion: Yes normal to percussion Auscultation: normal bowel sounds Rectal Exam - Female: deferred Skin General skin exam: no rashes or lesions noted, turgor normal, skin not dry, no jaundice, No spider nevi and no striae Rashes: no rashes Nails: normal Neuro General: oriented to person, oriented to place and oriented to time Cranial nerves: Yes Equal, round and reactive pupils present and Yes Normal hearing present Speech: No Abnormal speech present Extrem General: Yes normal to inspection, No clubbing, No cyanosis and No edema Psych Appearance: grossly normal and well kempt Mental Status: mental status grossly normal Speech and movement: Normal speech and movement present Affect: normal affect Attitude: cooperative Thought process: Normal thought process present and not confabulating Thought content: Normal thought content present Insight: Fair insight present (Psych) Judgement: Fair judgement present (Psych) Results Reviewed Results Reviewed: EGD/COLONOSCOPY 05/24/23 Findings: Larynx: Normal Esophagus: GE junction at 36 cms. No esophagitis or Lindsay's. Stomach: Moderate diffuse gastric erythema with nodular appearing gastric mucosa. Biopsies were obtained from the antrum and body of the stomach. A few 5 to 10 mm benign appearing polyps in the fundus and body - biopsied. Three 7-8 mm nodules in the antrum with central erosions - biopsied. Grade 2 flap valve on retroflexed examination of the cardia. Duodenum: Normal bulb and descending duodenum. Biopsies were obtained from 3rd part of the duodenum to check for celiac sprue Findings: Terminal Ileum: Distal 5 cm was examined and appeared normal Cecum: Normal Ascending Colon: A 10 mm flat polyp raised with 3 cc of Eleview and removed with a hot snare. A 2 cms flat polyp at 90 cms in the distal AC - raised with 2 cc of Eleview and removed with a hot stiff snare. Polypectomy site was marked with Vaishali ink Transverse Colon: Three 10-15 mm sessile polyps - removed with a hot snare Descending Colon: Moderate diverticulosis Sigmoid Colon: A 2.5 cms pedunculated hemorrhagic appearing polyp (on a long pedicle) at 18 cms - removed with a hot snare. Polypectomy sites was closed with 1 hemoclip. Severe diverticulosis with luminal narrowing Rectum: Normal Ano-rectum: Moderate internal hemorrhoids Colon preparation: Good after some irrigation Impression and Post Procedure Diagnosis: Endoscopy Findings: STOMACH: Moderate diffuse gastric erythema with nodular appearing gastric mucosa. Biopsies were obtained from the antrum and body of the stomach. A few 5 to 10 mm benign appearing polyps in the fundus and body - biopsied. Three 7-8 mm nodules in the antrum with central erosions - biopsied. DUODENUM: Normal - biopsied to check for celiac sprue Colonoscopy Findings: Six medium sized polyps removed Random biopsies were obtained from right and left colon to check for microscopic colitis Moderate diverticulosis seen in the left colon Moderate hemorrhoids on retroflexed exam. Plan: Await pathology results Patient has an appointment on 06/05/23 in the GI Clinic with Elyssa Cole NP. Repeat Colonoscopy interval based on path results - in 2 years if polyps are adenomatous and 10 years if polyps are hyperplastic. BIOPSY Received: 05/24/23 Diagnosis A. Duodenum, biopsy: Duodenal mucosa with preserved villi and no specific change; no evidence of celiac disease. B. Gastric antrum, biopsy: Gastric antral mucosa with minimal chronic inactive gastritis; negative for H pylori, intestinal metaplasia and dysplasia. C. Gastric nodule, biopsy: Gastric antral mucosa with reactive changes, intestinal metaplasia, and minimal chronic inactive gastritis; negative for H pylori, and dysplasia. D. Gastric polyp, biopsy: Gastric body mucosa with features suggesting proton pump inhibitor effect, and minimal chronic inactive gastritis; negative for H pylori, intestinal metaplasia and dysplasia. E. Gastric body, biopsy: Gastric body mucosa with features suggesting proton pump inhibitor effect, and minimal chronic inactive gastritis; negative for H pylori, intestinal metaplasia and dysplasia. F. Colon, right, biopsy: Colonic mucosa with no specific change; no evidence of microscopic colitis. G. Colon, ascending, polyps: Tubular adenoma, one; negative for high grade dysplasia and carcinoma, and sessile serrated lesion/polyp with dysplasia; multiple pieces. H. Colon, transverse, polyp: Tubular adenoma; negative for high grade dysplasia and carcinoma. I. Colon, left, biopsy: Colonic mucosa with no specific change; no evidence of microscopic colitis. J. Colon, sigmoid at 18 cm, polyp: Tubular adenoma, completely excised; negative for high grade dysplasia and carcinoma Assessment & Plan Assessment & Plan (1) GERD (gastroesophageal reflux disease): Code(s): K21.9 - Gastro-esophageal reflux disease without esophagitis (2) Abdominal pain: Code(s): R10.9 - Unspecified abdominal pain (3) E. coli infection: Code(s): A49.8 - Other bacterial infections of unspecified site (4) WELDON (nonalcoholic steatohepatitis): Comment: Baseline labs 02/27/23 the GGT 41 H Ceruloplasmin 28 Alpha Fetoprotein 1.3 the GUILHERME Screen NEGATIVE Anti-Mitochondrial Ab NEGATIVE Anti-Smooth Muscle Ab <20 Tiss Transglutamin IgG <1.0 Tiss Transglutamin IgA <1.0 Hepatitis A IgM Ab Nonreactive Hep Bs Antigen Negative Hep Bs Antibody REACTIVE Hep B Core Total Ab Nonreactive Hepatitis C Ab (EIA) Nonreactive HIV 1&2 Ab/P24 Ag 4thGn Nonreactive Ferritin 163 12/28/22 Total Bilirubin 0.4 Direct Bilirubin 0.1 AST 23 ALT 30 Alkaline Phosphatase 89. CURRENT LABS THE CT ABDOMEN PELVIS PERFORMED AT [facility] 01/08/2023 LIVER: Mild hepatic steatosis diffusely. Gallbladder: Nondistended gallbladder. No calcified stones. No evidence of inflammation. No biliary ductal dilation. The spleen: Normal Code(s): K75.81 - Nonalcoholic steatohepatitis (WELDON) (5) Family history of inflammatory bowel disease: Code(s): Z83.79 - Family history of other diseases of the digestive system Plan She had her mouth cut up by the mouthpiece for the EGD, she though it was a tooth problem. She saw her dentist to put on amoxicillin which was all the problem in about a week. Her diarrhea has stopped and she never had to take the Cipro. We reviewed the EGD and the colonoscopy and she is agreeable to the 2 year recall for the colonoscopy but because of the above complication is not in favor of having another endoscopy. This is not needed for surveillance so hopefully she will never have a situation where she needs another endoscopy. SHE HAD A VERY HARD TIME WITH THE PEG PREP, TRY FOR DIFFERENT NEXT TIME (TASTE). Fortunately her diarrhea has stopped. Her appetite is also better and she is not having heartburn. She still has the feeling of heaviness when she bends down, for example to put on pants, but she finds this tolerable at least for now. She is no longer taking any acid reducing medications and since she is not having symptoms of course this is fine. It would seem that all of the irritation in the symptoms were definitively link the E coli infection. The endoscopy definitely did not seem to show any signs of Crohn's disease, but again this can be elusive sometimes to diagnose giving the exacerbating remitting nature of the disease. As far as the WELDON goes her liver functions have normalized so this can be monitored by her primary care provider at 6 month to 1 year intervals and she can return to our service should they become more than twice the normal upper limit. As were no longer actively her for anything we will put her on a 2 year recall list but she is welcome to return to our service should any other problems arise.. Coding Level of Care Code Est Pt Level 3 (32533) Diagnoses GERD (gastroesophageal reflux disease) K21.9 Abdominal pain R10.9 E. coli infection A49.8 WELDON (nonalcoholic steatohepatitis) K75.81 Family history of inflammatory bowel disease Z83.79
[2023-06-05 15:16] VITALS: BP 120/48; PULSE 64; BMI 31.3
== END 2023-06-05 15:42 | disposition home or self-care (01) ==
PROVIDERS: PCP Internal Medicine; Visit Provider Nurse Practitioner
DX: K21.9 Gastro-esophageal reflux disease without esophagitis (principal); R10.9 Unspecified abdominal pain; A49.8 Other bacterial infections of unspecified site; K75.81 Nonalcoholic steatohepatitis (NASH); Z83.79 Family history of other diseases of the digestive system
CPT/HCPCS: 99213

== ENCOUNTER → 2023-06-05 15:06 | Outpatient (BNVA) | payer OTHER, SELFPAY | PROVIDERS: PCP Internal Medicine; Visit Provider Nurse Practitioner ==